=== PATIENT | male | born 1985 | race American Indian/Alaskan Native ===

== ENCOUNTER 2019-09-15 04:08 | Emergency (ER) | payer SELFPAY ==
[~2019-09-15] VITALS: Ht 180.3 cm; Wt 131.8 kg
--- NOTE | 2019-09-15 04:48 | REP ---
Clinical: Trauma. Technique: AP, lateral, bilateral oblique views right hand . Findings: The osseous structures and joint spaces are intact and normal. There is no evidence for acute fracture or dislocation. Surrounding soft tissues are unremarkable. No subcutaneous emphysema or radiodense foreign body. Impression: No obvious acute fracture or dislocation. Electronically Signed by Pierre Reyes MD 09/15/2019 04:40 A
[2019-09-15 05:05] LABS: HEMATOCRIT 42.1 % (42.0-52.0); MEAN CORPUSCULAR HEMOGLOBIN 27.8 pg (27.0-33.0); MEAN CORPUSCULAR HGB CONC 33.3 g/dl (32.0-36.5); MEAN CORPUSCULAR VOLUME 83.5 fl (80.0-96.0); PLATELET COUNT, AUTOMATED 235 10^3/uL (150-450); RED BLOOD COUNT 5.04 10^6/uL (4.30-6.10); WHITE BLOOD COUNT 8.4 10^3/uL (4.0-10.0)
[2019-09-15 05:25] LABS: AMPHETAMINES LEVEL URINE NEGATIVE (NEGATIVE); BARBITURATES URINE NEGATIVE (NEGATIVE); BENZODIAZEPINES URINE NEGATIVE (NEGATIVE); CANNABINOIDS URINE POSITIVE (NEGATIVE); COCAINE METABOLITE URINE NEGATIVE (NEGATIVE); METHADONE URINE NEGATIVE (NEGATIVE); OPIATES URINE NEGATIVE (NEGATIVE); PHENCYCLIDINE URINE NEGATIVE (NEGATIVE)
[2019-09-15 05:35] LABS: ACETAMINOPHEN LEVEL < 2.0 UG/ML (10.0-30.0); ALBUMIN 3.7 GM/DL (3.2-5.2); ALT/SGPT 112 U/L (12-78); BILIRUBIN,DIRECT < 0.1 MG/DL (0.0-0.2); BILIRUBIN,TOTAL 0.2 MG/DL (0.2-1.0); BLOOD UREA NITROGEN 27 MG/DL (7-18); CARBON DIOXIDE LEVEL 25 MEQ/L (21-32); CHLORIDE LEVEL 105 MEQ/L (98-107); CREATININE FOR GFR 1.41 MG/DL (0.70-1.30); ETHYL ALCOHOL (ETHANOL) 0.151 % (0.000-0.010); GLOMERULAR FILTRATION RATE > 60.0 (>60); GLUCOSE, FASTING 108 MG/DL (70-100); POTASSIUM SERUM 2.8 MEQ/L (3.5-5.1); SALICYLATE LEVEL < 1.7 MG/DL (5.0-30.0); SODIUM LEVEL 142 MEQ/L (136-145)
[2019-09-15] MEDS ORDERED: POTASSIUM CHLORIDE 10 MEQ SR TABLET PO ONE (06:00)
[2019-09-15] MEDS ORDERED: KCL 10MEQ/100ML SWI (KRUN) 10 MEQ in IV 1 EA IV ONE (06:00)
[2019-09-15] MEDS ORDERED: METAL LOCK LOOP XX ONE (06:48)
[2019-09-15 08:02] LABS: APPEARANCE, URINE CLEAR (CLEAR); BACTERIA, URINE AUTO NEGATIVE (NEGATIVE); BILIRUBIN, URINE AUTO NEGATIVE (NEGATIVE); BLOOD, URINE BLOOD 1+ (NEGATIVE); COLOR, URINE STRAW (YELLOW); GLUCOSE, URINE (UA) AUTO NEGATIVE (NEGATIVE); KETONE, URINE AUTO NEGATIVE (NEGATIVE); LEUKOCYTE ESTERASE, URINE AUTO NEGATIVE (NEGATIVE); MUCUS, URINE SMALL (NEGATIVE); NITRITE, URINE AUTO NEGATIVE (NEGATIVE); PROTEIN, URINE AUTO 2+ mg/dL (NEGATIVE); RBC, URINE AUTO 0 /HPF (0-3); SPECIFIC GRAVITY URINE AUTO 1.006 (1.002-1.035); SQUAMOUS EPITHELIAL CELL UR AU 0 /HPF (0-6); UROBILINOGEN, URINE AUTO 0.2 mg/dL (0.0-2.0); WBC, URINE AUTO 1 /HPF (0-3)
--- NOTE | 2019-09-15 08:13 | ECGEPIP ---
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
[2019-09-15 09:33] LABS: BLOOD UREA NITROGEN 23 MG/DL (7-18); CALCIUM LEVEL 9.2 MG/DL (8.5-10.1); CARBON DIOXIDE LEVEL 29 MEQ/L (21-32); CHLORIDE LEVEL 105 MEQ/L (98-107); CREATININE FOR GFR 1.17 MG/DL (0.70-1.30); GLOMERULAR FILTRATION RATE > 60.0 (>60); GLUCOSE, FASTING 103 MG/DL (70-100); POTASSIUM SERUM 3.3 MEQ/L (3.5-5.1); SODIUM LEVEL 143 MEQ/L (136-145)
[2019-09-15] MEDS ORDERED: K-TA10TA2 PO (12:48)
[2019-09-15 13:11] VITALS: BP 131/69
== END 2019-09-15 13:12 | disposition home or self-care (01) ==
LOC: M ED 04:08
DX: F43.20 Adjustment disorder, unspecified (principal); I10 Essential (primary) hypertension; E87.6 Hypokalemia; F31.9 Bipolar disorder, unspecified
CPT/HCPCS: 73130; 80048; 80076; 80307; 81001; 84443; 85027; 93005; 96365; 96366; 99285; G0480

== ENCOUNTER 2020-01-23 12:06 | Emergency (ER) | payer BC, MEDICAID, SELFPAY ==
[~2020-01-23] VITALS: Ht 175.3 cm; Wt 136.4 kg
[~2020-01-23 12:06] MED LIST: K-TA10TA2 PO
[2020-01-23] MEDS ORDERED: hydroCHLOROthiazide 25 MG TAB PO ONE (12:45)
[2020-01-23] MEDS ORDERED: lisinopriL 20 MG TAB PO ONE (12:45)
[2020-01-23 12:55] VITALS: BP 172/104
[2020-01-23 13:10] LABS: HEMATOCRIT 40.2 % (42.0-52.0); HEMOGLOBIN 13.2 g/dl (13.5-17.5); MEAN CORPUSCULAR HEMOGLOBIN 27.6 pg (27.0-33.0); MEAN CORPUSCULAR HGB CONC 32.8 g/dl (32.0-36.5); MEAN CORPUSCULAR VOLUME 83.9 fl (80.0-96.0); PLATELET COUNT, AUTOMATED 272 10^3/uL (150-450); RED BLOOD COUNT 4.79 10^6/uL (4.30-6.10); WHITE BLOOD COUNT 7.7 10^3/uL (4.0-10.0)
[2020-01-23 13:21] LABS: APPEARANCE, URINE CLEAR (CLEAR); BACTERIA, URINE AUTO NEGATIVE (NEGATIVE); BILIRUBIN, URINE AUTO NEGATIVE (NEGATIVE); BLOOD, URINE BLOOD NEGATIVE (NEGATIVE); COLOR, URINE YELLOW (YELLOW); GLUCOSE, URINE (UA) AUTO NEGATIVE (NEGATIVE); KETONE, URINE AUTO NEGATIVE (NEGATIVE); LEUKOCYTE ESTERASE, URINE AUTO NEGATIVE (NEGATIVE); NITRITE, URINE AUTO NEGATIVE (NEGATIVE); PROTEIN, URINE AUTO 2+ mg/dL (NEGATIVE); RBC, URINE AUTO 2 /HPF (0-3); SQUAMOUS EPITHELIAL CELL UR AU 0 /HPF (0-6); UROBILINOGEN, URINE AUTO 0.2 mg/dL (0.0-2.0); WBC, URINE AUTO 1 /HPF (0-3)
[2020-01-23 13:58] LABS: ALBUMIN 3.3 GM/DL (3.2-5.2); ALT/SGPT 73 U/L (12-78); BILIRUBIN,TOTAL 0.3 MG/DL (0.2-1.0); BLOOD UREA NITROGEN 20 MG/DL (7-18); CALCIUM LEVEL 8.9 MG/DL (8.5-10.1); CARBON DIOXIDE LEVEL 30 MEQ/L (21-32); CHLORIDE LEVEL 105 MEQ/L (98-107); CK-MB VALUE MASS 18.4 NG/ML (<3.6); CPK CREATINE PHOSPHOKINASE 2255 U/L (39-308); CREATININE FOR GFR 1.15 MG/DL (0.70-1.30); GLOMERULAR FILTRATION RATE > 60.0 (>60); GLUCOSE, FASTING 89 MG/DL (70-100); MB/CK RELATIVE INDEX 0.82 (< OR =4); POTASSIUM SERUM 3.3 MEQ/L (3.5-5.1); SODIUM LEVEL 142 MEQ/L (136-145); TOTAL PROTEIN 7.2 GM/DL (6.4-8.2); TROPONIN I 0.14 NG/ML (< 0.10)
[2020-01-23] MEDS ORDERED: NS 1,000 ML IV ONE (14:15)
[2020-01-23 16:16] LABS: CK-MB VALUE MASS 17.2 NG/ML (<3.6); MB/CK RELATIVE INDEX 0.73 (< OR =4); TROPONIN I 0.14 NG/ML (< 0.10)
[2020-01-23 16:17] VITALS: BP 168/114
[2020-01-23] MEDS ORDERED: HYDR12.55 PO (16:22)
[2020-01-23] MEDS ORDERED: LISI-538 PO (16:22)
--- NOTE | 2020-01-24 05:48 | ECGEPIP ---
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
== END 2020-01-23 16:47 | disposition home or self-care (01) ==
LOC: M ED 12:06
DX: I10 Essential (primary) hypertension (principal); M71.50 Other bursitis, not elsewhere classified, unspecified site; F17.200 Nicotine dependence, unspecified, uncomplicated

== ENCOUNTER → 2020-01-26 | Outpatient (CLI) | payer SELFPAY ==
[~2020-01-26] MED LIST changes: +HYDR12.55 PO; +LISI-538 PO
== END ==
LOC: M OUTALCOH 07:50
PROVIDERS: ATTEND Psychiatry & Neurology Addiction Medicine
DX: Z03.89 Encounter for observation for other suspected diseases and conditions ruled out (principal)

== ENCOUNTER 2020-02-16 14:42 | Outpatient (RCR) | payer SELFPAY | END 2020-02-20 | LOC: M OUTALCOH 14:42 | PROVIDERS: ATTEND Psychiatry & Neurology Addiction Medicine | DX: F12.10 Cannabis abuse, uncomplicated (principal); F10.10 Alcohol abuse, uncomplicated ==

== ENCOUNTER → 2020-03-08 | Outpatient (REF) | payer MEDICAID ==
[2020-03-08 11:17] LABS: APPEARANCE, URINE CLEAR (CLEAR); BACTERIA, URINE AUTO NEGATIVE (NEGATIVE); BILIRUBIN, URINE AUTO NEGATIVE (NEGATIVE); BLOOD, URINE BLOOD NEGATIVE (NEGATIVE); COLOR, URINE YELLOW (YELLOW); GLUCOSE, URINE (UA) AUTO NEGATIVE (NEGATIVE); KETONE, URINE AUTO NEGATIVE (NEGATIVE); LEUKOCYTE ESTERASE, URINE AUTO NEGATIVE (NEGATIVE); MUCUS, URINE SMALL (NEGATIVE); NITRITE, URINE AUTO NEGATIVE (NEGATIVE); PROTEIN, URINE AUTO 2+ mg/dL (NEGATIVE); RBC, URINE AUTO 0 /HPF (0-3); SPECIFIC GRAVITY URINE AUTO 1.015 (1.002-1.035); SQUAMOUS EPITHELIAL CELL UR AU 0 /HPF (0-6); UROBILINOGEN, URINE AUTO 0.2 mg/dL (0.0-2.0); WBC, URINE AUTO 0 /HPF (0-3)
[2020-03-08 11:53] LABS: HEMOGLOBIN A1c 5.3 %
[2020-03-08 12:19] LABS: ALBUMIN 3.8 GM/DL (3.2-5.2); ALT/SGPT 66 U/L (12-78); BILIRUBIN,TOTAL 0.4 MG/DL (0.2-1.0); BLOOD UREA NITROGEN 20 MG/DL (7-18); CALCIUM LEVEL 9.2 MG/DL (8.5-10.1); CARBON DIOXIDE LEVEL 30 MEQ/L (21-32); CHLORIDE LEVEL 104 MEQ/L (98-107); CHOLESTEROL LEVEL 156 MG/DL (<200); CHOLESTEROL RISK RATIO 2.836 (<5); CREATININE FOR GFR 1.16 MG/DL (0.70-1.30); GLOMERULAR FILTRATION RATE > 60.0 (>60); GLUCOSE, FASTING 80 MG/DL (70-100); HDL CHOLESTEROL 55 MG/DL (>40); LDL CHOLESTEROL 79 MG/DL (<100); NON-HDL-C 101 MG/DL; POTASSIUM SERUM 3.5 MEQ/L (3.5-5.1); SODIUM LEVEL 141 MEQ/L (136-145); TOTAL PROTEIN 7.6 GM/DL (6.4-8.2); TRIGLYCERIDES LEVEL 108 MG/DL (<150)
[2020-03-08 12:54] LABS: HIV 1&2 SCREEN CENTAUR NEGATIVE (NEGATIVE)
== END ==
LOC: M SFHCPLAZ 09:07
DX: Z13.1 Encounter for screening for diabetes mellitus (principal); Z68.41 Body mass index [BMI] 40.0-44.9, adult; Z00.00 Encounter for general adult medical examination without abnormal findings; I10 Essential (primary) hypertension

== ENCOUNTER 2020-03-15 14:22 | Outpatient (RCR) | payer SELFPAY | END 2020-03-21 | LOC: M OUTALCOH 14:22 | PROVIDERS: ATTEND Psychiatry & Neurology Addiction Medicine | DX: F12.10 Cannabis abuse, uncomplicated (principal); F10.10 Alcohol abuse, uncomplicated ==

== ENCOUNTER → 2020-03-16 | Outpatient (REF) | payer MEDICAID ==
[2020-03-16 10:55] LABS: BLOOD UREA NITROGEN 17 MG/DL (7-18); CALCIUM LEVEL 9.4 MG/DL (8.5-10.1); CARBON DIOXIDE LEVEL 33 MEQ/L (21-32); CHLORIDE LEVEL 105 MEQ/L (98-107); CREATININE FOR GFR 1.18 MG/DL (0.70-1.30); GLOMERULAR FILTRATION RATE > 60.0 (>60); GLUCOSE, FASTING 93 MG/DL (70-100); POTASSIUM SERUM 3.4 MEQ/L (3.5-5.1); SODIUM LEVEL 143 MEQ/L (136-145)
== END ==
LOC: M PLALAB 08:31
DX: I16.0 Hypertensive urgency (principal)

== ENCOUNTER 2020-04-19 14:51 | Outpatient (RCR) | payer OTHER, SELFPAY | END 2020-04-21 | LOC: M OUTALCOH 14:51 | PROVIDERS: ATTEND Psychiatry & Neurology Addiction Medicine | DX: F12.10 Cannabis abuse, uncomplicated (principal); F10.10 Alcohol abuse, uncomplicated ==

== ENCOUNTER → 2020-04-19 | Outpatient (REF) | payer OTHER ==
[2020-04-19 13:07] LABS: BLOOD UREA NITROGEN 20 MG/DL (7-18); CALCIUM LEVEL 9.3 MG/DL (8.5-10.1); CARBON DIOXIDE LEVEL 31 MEQ/L (21-32); CHLORIDE LEVEL 105 MEQ/L (98-107); CREATININE FOR GFR 1.29 MG/DL (0.70-1.30); GLOMERULAR FILTRATION RATE > 60.0 (>60); GLUCOSE, FASTING 93 MG/DL (70-100); POTASSIUM SERUM 3.7 MEQ/L (3.5-5.1); SODIUM LEVEL 142 MEQ/L (136-145)
== END ==
LOC: M SFHCPLAZ 11:25
PROVIDERS: ATTEND Family Medicine
DX: I10 Essential (primary) hypertension (principal)

== ENCOUNTER 2020-05-06 11:06 | Emergency (ER) | payer MEDICAID, OTHER ==
[~2020-05-06] VITALS: Ht 175.3 cm; Wt 138.0 kg
[~2020-05-06 11:06] MED LIST changes: -LISI-538 PO; +LISI20TA33 PO
--- OUTSIDE RECORDS SUMMARY | 2020-05-06 11:12 | CCD ---
Author Author [facility] Organization [facility] Address Unknown Phone Unavailable Support Name Relationship Address Phone TOPS Next Of Kin [address] [place] [address] SCARLET FREEMAN Next Of Kin [address] [place] [address] [place] Next Of Kin [address] [place] [address] Scarlet Freeman E[facility] [place] [address] Unavailable Re-disclosure Warning The records that you are about to access may contain information from federally-assisted alcohol or drug abuse programs. If such information is present, then the following federally mandated warning applies: This information has been disclosed to you from records protected by federal confidentiality rules (42 CFR part 2). The federal rules prohibit you from making any further disclosure of this information unless further disclosure is expressly permitted by the written consent of the person to whom it pertains or as otherwise permitted by 42 CFR part 2. A general authorization for the release of medical or other information is NOT sufficient for this purpose. The Federal rules restrict any use of the information to criminally investigate or prosecute any alcohol or drug abuse patient.The records that you are about to access may contain highly sensitive health information, the redisclosure of which is protected by Article 27-F of the [facility] Public Health law. If you continue you may have access to information: Regarding HIV / AIDS; Provided by facilities licensed or operated by the [facility] Office of Mental Health; or Provided by the [facility] Office for People With Developmental Disabilities. If such information is present, then the following [facility] mandated warning applies: This information has been disclosed to you from confidential records which are protected by state law. State law prohibits you from making any further disclosure of this information without the specific written consent of the person to whom it pertains, or as otherwise permitted by law. Any unauthorized further disclosure in violation of state law may result in a fine or assisted sentence or both. A general authorization for the release of medical or other information is NOT sufficient authorization for further disc losure. Encounters Encounter Providers Location Date Indications Data Source(s ) [place] [address] [facility] [address] 03/15/2020 12:00:00 AM EST eCW1 ([facility]) [place] [address] [facility] [address] 03/03/2020 12:00:00 AM EST eCW1 ([facility]) [facility] [address] [place] [address] 07/17/2019 12:00:00 AM EDT eCW1 ([facility]) Immunizations Vaccine Date Status Description Data Source(s) HPV9 03/03/2020 04:55:00 PM EST completed e CW1 ([facility]) HPV9 03/03/2020 04:55:00 PM EST completed e CW1 ([facility]) HPV9 03/03/2020 04:55:00 PM EST completed e CW1 ([facility]) Tdap 07/17/2019 06:03:00 PM EDT completed e CW1 ([facility]) Medications Medication Brand Name Start Date Product Form Dose Route Admi nistrative Instructions Pharmacy Instructions Status Indications Reaction Description Data Source(s) 25 mg 05/04/2020 12:00:00 AM EST tablet 30 TAKE ONE-HALF TABLET BY MOUTH TWICE A DAY TAKE ONE-HALF TABLET BY MOUTH TWICE A DAY SOLD: 05/05/2020 [facility] 10 mg 04/27/2020 12:00:00 AM EST tablet 30 TAKE ONE TABLET BY MOUTH EVERY DAY TAKE ONE TABLET BY MOUTH EVERY DAY SOLD: 04/28/2020 [facility] Amlodipine 10 MG Oral Tablet AmLODIPine Besylate 10 MG AmLODIPine Besylate 10 MG 04/26/2020 12:00:00 AM EST 1.0 {tablet} activ e AmLODIPine Besylate 10 MG eCW1 ([facility]) 5 mg 04/12/2020 12:00:00 AM EST tablet 30 TAKE ONE TABLET BY MOUTH EVERY DAY TAKE ONE TABLET BY MOUTH EVERY DAY SOLD: 04/13/2020 [facility] carvedilol 25 MG Oral Tablet CARVEDILOL 03/29/2020 12:00:00 AM EST tab let 60 TAKE ONE TABLET BY MOUTH TWICE A DAY WITH FOOD TAKE ONE TABLET BY MOUTH TWICE A DAY WITH FOOD SOLD: 04/28/2020 [facility] carvedilol 25 MG Oral Tablet CARVEDILOL 03/29/2020 12:00:00 AM EST tab let 60 TAKE ONE TABLET BY MOUTH TWICE A DAY WITH FOOD TAKE ONE TABLET BY MOUTH TWICE A DAY WITH FOOD SOLD: 03/30/2020 [facility] 25 mg 03/29/2020 12:00:00 AM EST tablet 15 TAKE 1/2 TABLET BY MOUTH TWO TIMES A DAY TAKE 1/2 TABLET BY MOUTH TWO TIMES A DAY SOLD: 03/30/2020 [facility] Spironolactone 25 MG Oral Tablet Spironolactone 25 MG 2019 12:00:00 AM EST active Spironolactone 25 MG eCW1 ([facility]) carvedilol 25 MG Oral Tablet Carvedilol 25 MG Carvedilol 25 MG 03/28/2020 12:00:00 AM EST 1.0 {tablet_with_food} active Carvedilol 25 MG eCW1 ([facility]) carvedilol 12.5 MG Oral Tablet [Coreg] Coreg 12.5 MG Coreg 1 2.5 MG 03/15/2020 12:00:00 AM EST 1.0 {tablet_with_food} active Coreg 12.5 MG eCW1 ([facility]) carvedilol 12.5 MG Oral Tablet [Coreg] Coreg 12.5 MG Coreg 1 2.5 MG 03/15/2020 12:00:00 AM EST 1.0 {tablet_with_food} active Coreg 12.5 MG eCW1 ([facility]) carvedilol 12.5 MG Oral Tablet CARVEDILOL 03/15/2020 12:00:00 AM EST tablet 60 TAKE ONE TABLET BY MOUTH TWICE A DAY WITH FOOD TAKE ON E TABLET BY MOUTH TWICE A DAY WITH FOOD SOLD: 03/15/2020 [facility] 20 mg 03/04/2020 12:00:00 AM EST tablet 30 TAKE ONE TABLET BY MOUTH EVERY DAY TAKE ONE TABLET BY MOUTH EVERY DAY SOLD: 03/04/2020 [facility] 12.5 mg 03/04/2020 12:00:00 AM EST capsule 30 TAKE ONE CAPSULE BY MOUTH EVERY MORNING ONCE A DAY TAKE ONE CAPSULE BY MOUTH EVERY MORNING ONCE A DAY SOLD: 03/04/2020 [facility] 12.5 mg 03/04/2020 12:00:00 AM EST capsule 30 TAKE ONE CAPSULE BY MOUTH EVERY MORNING ONCE A DAY TAKE ONE CAPSULE BY MOUTH EVERY MORNING ONCE A DAY SOLD: 03/30/2020 [facility] 20 mg 03/04/2020 12:00:00 AM EST tablet 30 TAKE ONE TABLET BY MOUTH EVERY DAY TAKE ONE TABLET BY MOUTH EVERY DAY SOLD: 03/30/2020 [facility] 20 mg 03/04/2020 12:00:00 AM EST tablet 30 TAKE ONE TABLET BY MOUTH EVERY DAY TAKE ONE TABLET BY MOUTH EVERY DAY SOLD: 04/28/2020 [facility] 12.5 mg 03/04/2020 12:00:00 AM EST capsule 30 TAKE ONE CAPSULE BY MOUTH EVERY MORNING ONCE A DAY TAKE ONE CAPSULE BY MOUTH EVERY MORNING ONCE A DAY SOLD: 04/28/2020 [facility] Hydrochlorothiazide 12.5 MG Oral Tablet HYDROCHLOROTHIAZIDE 01/23/2020 12:00:00 AM EDT tablet 30 TAKE ONE TABLET BY MOUTH JAH DAY TAKE ONE TABLET BY MOUTH EVERY DAY SOLD: 01/26/2020 [facility] 20 mg 01/23/2020 12:00:00 AM EDT tablet 30 TAKE ONE TABLET BY MOUTH EVERY DAY TAKE ONE TABLET BY MOUTH EVERY DAY SOLD: 01/26/2020 [facility] 875-125 mg 07/17/2019 12:00:00 AM EDT tablet 20 TAKE ONE TABLET BY MOUTH EVERY 12 HOURS FOR 10 DAYS TAKE ONE TABLET BY MOUTH EVERY 12 HOURS FOR 10 DAYS SOLD: 07/17/2019 [facility] Augmentin 875-125 MG UNK 07/17/2019 12:00:00 AM EDT active 1 tablet eCW1 ([facility]) Insurance Providers Payer name Policy type / Coverage type Policy ID Covered democrat ID Covered democrat's relationship to foley Policy Foley Plan Information [facility] [id number] SP [id number] [facility] [id number] SP [id number] SELF PAY ONLY [id number] SP [id number] EMEDNY [id number] SP [id number] [employer] [place] PPO [id number] SP [id number] Problems, Conditions, and Diagnoses Code Display Name Description Problem Type Effective Dates Data Source(s) G47.33 [id number] Obstructive sleep apnea Problem 05/01/2020 1 2:00:00 AM EST eCW1 ([facility]) G47.34 151458793 Nocturnal hypoxia Problem 04/12/2020 12:00:0 0 AM EST eCW1 ([facility]) I10 67456400 Hypertension, unspecified type Problem 03/16 12:00:00 AM EST eCW1 ([facility]) I16.0 915898555 Hypertensive urgency Problem 03/15/2020 12:0 0:00 AM EST eCW1 ([facility]) I10 79605016 Elevated blood press ure reading in office with diagnosis of hypertension Problem 03/03/2020 12:00:00 AM EST eCW1 ([facility]) Z68.41 424121452 BMI 40.0-44.9, adult Problem 03/03/2020 12:0 0:00 AM EST eCW1 ([facility]) Surgeries/Procedures Procedure Description Date Indications Data Source(s) ECG ROUTINE ECG W/LEAST 12 LDS W/I&R 03/15/2020 12:00: 00 AM EST eCW1 ([facility]) Medication: Coreg Tab 3.125mg Orally (Carvedilol) 03/15/2020 12:00:00 AM EST eCW1 ([facility]) Immunization: Gardasil 9 0.5mL IM (HPV9) 03/03/2020 12 :00:00 AM EST eCW1 ([facility]) TDAP 0.5mL (Boostrix) 07/17/2019 12:00:00 AM EDT eCW1 ([facility]) IMMUNIZATION ADMIN 07/17/2019 12:00:00 AM EDT eCW1 ([facility]) Social History Code Duration Value Status Description Data Source(s ) Smoking 05/01/2020 12:00:00 AM EST Current Smoker completed Curre nt Smoker eCW1 ([facility]) Smoking 03/16/2020 12:00:00 AM EST Current Smoker completed Curre nt Smoker eCW1 ([facility]) Smoking 03/16/2020 12:00:00 AM EST Current Smoker completed Curre nt Smoker eCW1 ([facility]) Vital Signs ID Date Data Source UNK Name Value Range Interpretation Code Description Data Source(s) Diastolic blood pressure 130 mm[Hg] 130 mm[Hg] eCW1 ([facility]) Systolic blood pressure 224 mm[Hg] 224 mm[Hg] e CW1 ([facility]) Body temperature 97.8 [degF] 97.8 [degF] eCW1 ( [facility]) Respiratory rate 18 /min 18 /min eCW1 ([facility]) Heart rate 89 /min 89 /min eCW1 ([facility]) Body mass index (BMI) [Ratio] 44.76 kg/m2 44.76 kg/m2 eCW1 ([facility]) Body height 69 [in_i] 69 [in_i] eCW1 ([facility]) Body weight 303.12 [lb_av] 303.12 [lb_av] eCW1 ([facility]) Diastolic blood pressure 130 mm[Hg] 130 mm[Hg] eCW1 ([facility]) Systolic blood pressure 224 mm[Hg] 224 mm[Hg] e CW1 ([facility]) Body temperature 97.8 [degF] 97.8 [degF] eCW1 ( [facility]) Respiratory rate 18 /min 18 /min eCW1 ([facility]) Heart rate 89 /min 89 /min eCW1 ([facility]) Body mass index (BMI) [Ratio] 44.76 kg/m2 44.76 kg/m2 W1 ([facility]) Body height 69 [in_i] 69 [in_i] eCW1 ([facility]) Body weight 303.12 [lb_av] 303.12 [lb_av] eCW1 ([facility]) Diastolic blood pressure mm[Hg] eCW1 ([facility]) Systolic blood pressure 150 mm[Hg] 150 mm[Hg] e CW1 ([facility]) Body temperature 98.2 [degF] 98.2 [degF] eCW1 ( [facility]) Respiratory rate 18 /min 18 /min eCW1 ([facility]) Heart rate 92 /min 92 /min eCW1 ([facility]) Body mass index (BMI) [Ratio] 44.62 kg/m2 44.62 kg/m2 eCW1 ([facility]) Body height 69 [in_i] 69 [in_i] eCW1 ([facility]) Body weight 302.2 [lb_av] 302.2 [lb_av] eCW1 ([facility] of [facility]) Diastolic blood pressure 99 mm[Hg] 99 mm[Hg] eCW1 ([facility]) Systolic blood pressure 185 mm[Hg] 185 mm[Hg] e CW1 ([facility]) Body temperature [degF] eCW1 ([facility]) Respiratory rate 16 /min 16 /min eCW1 ([facility]) Heart rate 92 /min 92 /min eCW1 ([facility]) Body mass index (BMI) [Ratio] 44.00 kg/m2 44.00 kg/m2 eCW1 ([facility]) Body height 69 [in_us] 69 [in_us] eCW1 ([facility]) Body weight Measured 298 [lb_av] 298 [lb_av] eC W1 ([facility]) Patient Treatment Plan of Care Planned Activity Planned Date Details Description Data Source (s) Amlodipine 10 MG Oral Tablet 04/26/2020 12:00:00 AM EST eCW1 ([facility]) Spironolactone 25 MG Oral Tablet 03/28/2020 12:00:00 AM EST eCW1 ([facility]) Augmentin 875-125 MG 07/17/2019 12:00:00 AM EDT eCW1 ([facility])
--- OUTSIDE RECORDS SUMMARY | 2020-05-06 11:12 | CCD ---
Author Author [facility] Organization [facility] Address Unknown Phone Unavailable Care Team Providers Care Federal Agent Name Role Phone Marianna Romero Unavailable PROBLEMS Type Condition ICD9-CM Code [id number] Code Onset Dates Condition S tatus SNOMED Code Notes Problem Hypertensive urgency I16.0 Active 342639780 Problem Hypertension, unspecified type I10 Active 3 3627950 Problem BMI 40.0-44.9, adult Z68.41 Active 501520186 Problem Elevated blood pressure read ing in office with diagnosis of hypertension I10 Active 88449317 ALLERGIES No Known Allergies ENCOUNTERS from 1985 to 2020-03-23 Encounter Location Date Provider Diagnosis [address] [address] 24 Feb, 2020 Marianna Romero Hypertensive urgency I16.0 IMMUNIZATIONS Vaccine Route Administration Date Status HPV9 0.5mL (Gardasil 9) IM Intramuscular Mar 03, 2020 Adminis tered SOCIAL HISTORY Tobacco Use: Social History Observation Description Date Details (start date - stop date) Current Smoker Sex Assigned At : Social History Observation Description Sex Assigned At Unknown Education: Question Answer Notes Level of Education: High School Language: Question Answer Notes Languages spoken: Serbian Buddhist: Question Answer Notes Buddhist 33 None Sexual Hx: Question Answer Notes Had sex in the last 12 months (vaginal, oral, or anal)? Yes Have you ever had an STD? No with Women only Use protection? Yes How often? 90% Alcohol Screening: Question Answer Notes Did you have a drink containing alcohol in the past year? Ye s Points 3 Interpretation Negative How often did you have six or more drinks on one occas ion in the past year? Never (0 points) How many drinks did you have on a typica l day when you were drinking in the past year? 1 or 2 (0 points) How often did you have a drink containing alcohol in t he past year? Two to three times per week (3 points) Tobacco Use: Question Answer Notes Are you a: current smoker How many cigarettes a day do you smoke? 5 or less Are you interested in quitting? Not ready to quit REASON FOR REFERRAL No Information VITAL SIGNS Weight 303.12 lbs Feb, Height 69 in Feb, BMI 44.76 kg/m2 Feb, Heart Rate 89 /min Feb, Respiratory Rate 18 /min Feb, Temperature 97.8 degrees Fahrenheit Feb, Oximetry 98 Feb, Blood pressure systolic 224 mm Hg Feb, Blood pressure diastolic 130 mm Hg Feb, MEDICATIONS Medication SIG (Take, Route, Frequency, Duration) Notes Start Da te End Date Status Lisinopril 20 MG 1 tablet Orally Once a day for 30 day(s) Active Coreg 12.5 MG 1 tablet with food Orally Twice a day for 30 day (s) Feb, Active Hydrochlorothiazide 12.5 MG 1 capsule in the morning O rally Once a day for 30 day(s) Active PROCEDURES Procedure Date Ordered Result Body Site Medication: Coreg Tab 3.125mg Orally (Carvedilol) 2020-03-15 N/A ELECTROCARDIOGRAM, COMPLETE EKG 2020-03-15 N/A RESULTS No Results REASON FOR VISIT Elevated BP MEDICAL (GENERAL) HISTORY Type Description Date Medical History hypertension Surgical History No Surgical history information Goals Section No Information Health Concerns No Information MEDICAL EQUIPMENT No Information MENTAL STATUS No Information FUNCTIONAL STATUS No Information ASSESSMENTS Encounter Date Diagnosis Assessment Notes Treatment Notes Treatm ent Clinical Notes Feb, Hypertensive urgency (ICD-10 - I16.0) Discussed patient with Dr. Carvalho as well Pt given Coreg 12.5 mg here in the clinic; pt waited for about an hour and his BP came down to 170/102 on the right arm and 170/110 on the left. He felt better stating that he felt less tense. Will obtain a BMP and drug screen tomorrow before his appt. Continue Coreg 12.5 mg BID. Follow-up tomorrow for a recheck. With any chest pain, call 911 PLAN OF TREATMENT Treatment Notes Assessment Notes Clinical Notes Hypertensive urgency Discussed patient with Dr. Mee kessler as wellPt given Coreg 12.5 mg here in the clinic; pt waited for about an hour and his BP came down to 170/102 on the right arm and 170/110 on the left. He felt better stating that he felt less tense.Will obtain a BMP and drug screen tomorrow before his appt.Continue Coreg 12.5 mg BID.Follow-up tomorrow for a recheck.With any chest pain, call 911 Treatment Notes Test Name Order Date DRUG EVAL SCREEN BLOOD 7 DRUGS 2020-03-23 Next Appt Details Provider Name:Mckinley Shelton, 7 02:30:00 PM, [address] [place], [address], Insurance Providers Payer Name Payer Address Payer Phone Insured Name Patient Relati onship to Insured Coverage Start Date Coverage End Date MEDICAID [employer] [address] [facility] [id number] CATHLEEN FREEMAN
--- OUTSIDE RECORDS SUMMARY | 2020-05-06 11:12 | CCD ---
Author Author [facility] Organization [facility] Address Unknown Phone Unavailable Care Team Providers Care Sole Layer Hand Name Role Phone Marianna Romero Unavailable PROBLEMS Type Condition ICD9-CM Code [id number] Code Onset Dates Condition S tatus SNOMED Code Notes Problem Hypertensive urgency I16.0 Active 286930774 Problem Hypertension, unspecified type I10 Active 3 0466845 Problem BMI 40.0-44.9, adult Z68.41 Active 363061610 Problem Elevated blood pressure read ing in office with diagnosis of hypertension I10 Active 12224588 ALLERGIES No Known Allergies ENCOUNTERS from 1985 to 2020-03-22 Encounter Location Date Provider Diagnosis [address] [address] 24 Feb, 2020 Marianna Romero Hypertensive urgency [...] School Language: Question Answer Notes Languages spoken: Andorran Voodoo: Question Answer Notes Voodoo 33 None Sexual Hx: Question Answer Notes [...] Coreg Tab 3.125mg Orally (Carvedilol) 2020-03-15 N/A RESULTS No Results REASON FOR [...] 911 Treatment Notes Test Name Order Date Basic Metabolic Profile (BMP) 2020-03-22 DRUG EVAL SCREEN BLOOD 7 DRUGS 2020-03-22 ELECTROCARDIOGRAM, COMPLETE EKG 2020-03-22 Next Appt Details Provider Name:Mckinley Shelton, 7 02:30:00 PM, [address] [facility], [place], [address], Insurance Providers Payer Name Payer Address Payer Phone Insured Name Patient Relati onship to Insured Coverage Start Date Coverage End Date MEDICAID [employer] [address] [facility] [id number] CATHLEEN FREEMAN
[2020-05-06] MEDS ORDERED: AMLO1TAB25 (11:26)
[2020-05-06] MEDS ORDERED: CARV25TA (11:26)
[2020-05-06] MEDS ORDERED: SPIR-10 (11:26)
--- OUTSIDE RECORDS SUMMARY | 2020-05-06 12:20 | CCD ---
Author Author [facility] Organization [facility] Address Unknown Phone Unavailable Support Name Relationship Address Phone TOPS Next Of Kin [address] [place] [address] SCARLET FREEMAN Next Of Kin [address] [place] [address] [place] Next Of Kin [address] [place] [address] Scarlet Freeman [facility] [place] [address] Unavailable Re-disclosure Warning The records that you [...] is protected by Article 27-F of the [facility] Public Health law. If you continue you may have access to information: Regarding HIV / AIDS; Provided by facilities licensed or operated by the [facility] Office of Mental Health; or Provided by the [facility] Office for People With Developmental Disabilities. If such information is present, then the following [facility] mandated warning applies: This information has [...] law may result in a fine or long-term sentence or both. A general authorization for the release of medical or other information is NOT sufficient authorization for further disc losure. Encounters Encounter Providers Location Date Indications Data Source(s ) [place] [address] [facility] [address] 03/15/2020 12:00:00 AM EST eCW1 ([facility]) [place] [address] [facility] [address] 03/03/2020 12:00:00 AM EST eCW1 ([facility]) [facility] [address] [place] [address] 07/17/2019 12:00:00 AM EDT eCW1 ([facility]) Immunizations Vaccine Date Status Description Data Source(s) HPV9 03/03/2020 04:55:00 PM EST completed e CW1 ([facility]) HPV9 03/03/2020 04:55:00 PM EST completed e CW1 ([facility]) HPV9 03/03/2020 04:55:00 PM EST completed e CW1 ([facility]) Tdap 07/17/2019 06:03:00 PM EDT completed e CW1 ([facility]) Medications Medication Brand Name Start [...] activ e AmLODIPine Besylate 10 MG eCW1 ([facility]) 5 mg 04/12/2020 12:00:00 AM [...] AM EST active Spironolactone 25 MG eCW1 ([facility]) carvedilol 25 MG Oral Tablet Carvedilol 25 MG Carvedilol 25 MG 03/28/2020 12:00:00 AM EST 1.0 {tablet_with_food} active Carvedilol 25 MG eCW1 ([facility]) carvedilol 12.5 MG Oral Tablet [Coreg] Coreg 12.5 MG Coreg 1 2.5 MG 03/15/2020 12:00:00 AM EST 1.0 {tablet_with_food} active Coreg 12.5 MG eCW1 ([facility]) carvedilol 12.5 MG Oral Tablet [Coreg] Coreg 12.5 MG Coreg 1 2.5 MG 03/15/2020 12:00:00 AM EST 1.0 {tablet_with_food} active Coreg 12.5 MG eCW1 ([facility]) carvedilol 12.5 MG Oral Tablet [...] 12:00:00 AM EDT active 1 tablet eCW1 ([facility]) Insurance Providers Payer name Policy type / Coverage type Policy ID Covered republican ID Covered republican's relationship to foley Policy Foley Plan Information [facility] [id number] SP [id number] [facility] [id number] SP [id number] [facility] [id number] SELF PAY ONLY [id number] SP [id number] [place] [id number] SP [id number] [employer] [place] PPO 302/307 [id number] SP [id number] Problems, Conditions, and Diagnoses Code Display Name Description Problem Type Effective Dates Data Source(s) G47.33 [id number] Obstructive sleep apnea Problem 05/01/2020 1 2:00:00 AM EST eCW1 ([facility]) G47.34 [id number] Nocturnal hypoxia Problem 04/12/2020 12:00:0 0 AM EST eCW1 ([facility]) I10 32603014 Hypertension, unspecified type Problem 03/16 12:00:00 AM EST eCW1 ([facility]) I16.0 [id number] Hypertensive urgency Problem 03/15/2020 12:0 0:00 AM EST eCW1 ([facility]) I10 [id number] Elevated blood press ure reading in office with diagnosis of hypertension Problem 03/03/2020 12:00:00 AM EST eCW1 ([facility]) Z68.41 [id number] BMI 40.0-44.9, adult Problem 03/03/2020 12:0 0:00 AM EST eCW1 ([facility]) Surgeries/Procedures Procedure Description Date Indications Data Source(s) ECG ROUTINE ECG W/LEAST 12 LDS W/I&R 03/15/2020 12:00: 00 AM EST eCW1 ([facility]) Medication: Coreg Tab 3.125mg Orally (Carvedilol) 03/15/2020 12:00:00 AM EST eCW1 ([facility]) Immunization: Gardasil 9 0.5mL IM (HPV9) 03/03/2020 12 :00:00 AM EST eCW1 ([facility]) TDAP 0.5mL (Boostrix) 07/17/2019 12:00:00 AM EDT eCW1 ([facility]) IMMUNIZATION ADMIN 07/17/2019 12:00:00 AM EDT eCW1 ([facility]) Social History Code Duration Value Status Description Data Source(s ) Smoking 05/01/2020 12:00:00 AM EST Current Smoker completed Curre nt Smoker eCW1 ([facility]) Smoking 03/16/2020 12:00:00 AM EST Current Smoker completed Curre nt Smoker eCW1 ([facility]) Smoking 03/16/2020 12:00:00 AM EST Current Smoker completed Curre nt Smoker eCW1 ([facility]) Vital Signs ID Date Data Source UNK Name Value Range Interpretation Code Description Data Source(s) Diastolic blood pressure 130 mm[Hg] 130 mm[Hg] eCW1 ([facility]) Systolic blood pressure 224 mm[Hg] 224 mm[Hg] e CW1 ([facility]) Body temperature 97.8 [degF] 97.8 [degF] eCW1 ( [facility]) Respiratory rate 18 /min 18 /min eCW1 ([facility]) Heart rate 89 /min 89 /min eCW1 ([facility]) Body mass index (BMI) [Ratio] 44.76 kg/m2 44.76 kg/m2 W1 ([facility]) Body height 69 [in_i] 69 [in_i] eCW1 ([facility]) Body weight 303.12 [lb_av] 303.12 [lb_av] eCW1 ([facility]) Diastolic blood pressure 130 mm[Hg] 130 mm[Hg] eCW1 ([facility]) Systolic blood pressure 224 mm[Hg] 224 mm[Hg] e CW1 ([facility]) Body temperature 97.8 [degF] 97.8 [degF] eCW1 ( [facility]) Respiratory rate 18 /min 18 /min eCW1 ([facility]) Heart rate 89 /min 89 /min eCW1 ([facility]) Body mass index (BMI) [Ratio] 44.76 kg/m2 44.76 kg/m2 W1 ([facility]) Body height 69 [in_i] 69 [in_i] eCW1 ([facility]) Body weight 303.12 [lb_av] 303.12 [lb_av] eCW1 ([facility]) Diastolic blood pressure mm[Hg] eCW1 ([facility]) Systolic blood pressure 150 mm[Hg] 150 mm[Hg] e CW1 ([facility]) Body temperature 98.2 [degF] 98.2 [degF] eCW1 ( [facility]) Respiratory rate 18 /min 18 /min eCW1 ([facility]) Heart rate 92 /min 92 /min eCW1 ([facility]) Body mass index (BMI) [Ratio] 44.62 kg/m2 44.62 kg/m2 eCW1 ([facility]) Body height 69 [in_i] 69 [in_i] eCW1 ([facility]) Body weight 302.2 [lb_av] 302.2 [lb_av] eCW1 ([facility]) Diastolic blood pressure 99 mm[Hg] 99 mm[Hg] eCW1 ([facility]) Systolic blood pressure 185 mm[Hg] 185 mm[Hg] e CW1 ([facility]) Body temperature [degF] eCW1 ([facility]) Respiratory rate 16 /min 16 /min eCW1 ([facility]) Heart rate 92 /min 92 /min eCW1 ([facility]) Body mass index (BMI) [Ratio] 44.00 kg/m2 44.00 kg/m2 eCW1 ([facility]) Body height 69 [in_us] 69 [in_us] eCW1 ([facility]) Body weight Measured 298 [lb_av] 298 [lb_av] eC W1 ([facility]) Patient Treatment Plan of Care Planned Activity Planned Date Details Description Data Source (s) Amlodipine 10 MG Oral Tablet 04/26/2020 12:00:00 AM EST eCW1 ([facility]) Spironolactone 25 MG Oral Tablet 03/28/2020 12:00:00 AM EST eCW1 ([facility]) Augmentin 875-125 MG 07/17/2019 12:00:00 AM EDT eCW1 ([facility])
--- NOTE | 2020-05-06 12:38 | REP ---
INDICATION: left wrist pain COMPARISON: None. TECHNIQUE: Four views left wrist. FINDINGS: There is no evidence of acute fracture, dislocation, or intrinsic bone disease. IMPRESSION: No fracture or dislocation. <Electronically signed by Deven Mcelroy > 05/06/20 [id number]
[2020-05-06 12:57] VITALS: BP 149/73
== END 2020-05-06 12:59 | disposition home or self-care (01) ==
LOC: M ED 11:06
DX: G56.02 Carpal tunnel syndrome, left upper limb (principal); I10 Essential (primary) hypertension; Z79.899 Other long term (current) drug therapy; Z91.018 Allergy to other foods

== ENCOUNTER → 2020-05-09 | Outpatient (REF) | payer OTHER ==
[~2020-05-09] MED LIST changes: +AMLO1TAB25; +CARV25TA; +SPIR-10
== END ==
LOC: M SFHCPLAZ 08:58
PROVIDERS: ATTEND Family Medicine
DX: R80.9 Proteinuria, unspecified (principal)

== ENCOUNTER 2020-05-10 13:10 | Outpatient (RCR) | payer MEDICAID ==
[~2020-05-10 13:10] MED LIST changes: +LISI-538 PO; -LISI20TA33 PO
== END 2020-05-22 ==
LOC: M OUTALCOH 13:10
PROVIDERS: ATTEND Psychiatry & Neurology Addiction Medicine
DX: F12.10 Cannabis abuse, uncomplicated (principal); F10.10 Alcohol abuse, uncomplicated

== ENCOUNTER → 2020-05-10 | Outpatient (REF) | payer OTHER ==
[2020-05-10 11:51] LABS: TOTAL PROTEIN,RANDOM URINE 138.8 MG/DL (0.0-12.0)
== END ==
LOC: M SFHCPLAZ 10:13
DX: R80.9 Proteinuria, unspecified (principal)

== ENCOUNTER → 2020-06-07 | Outpatient (CLI) | payer OTHER ==
[~2020-06-07] MED LIST changes: -LISI-538 PO; +LISI20TA33 PO
--- NOTE | 2020-06-09 14:30 | SLEEPHOME ---
DATE: 06/07/2020 ORDERED BY: Madhavi Michel Diagnostic home sleep testing was performed due to concern for the obstructive sleep apnea syndrome in this patient with a history of hypertension and obesity who is experiencing excessive somnolence and nonrestorative sleep. For testing, a nocturnal T3 respiratory monitoring device was used. Continuous record was made of pulse, oxygen saturation, air flow, chest and abdominal strain, and body position. There was 9 hours and 59 minutes of data reviewed. There was 6 hours and 43 minutes marked as time in bed. During the interval marked time in bed there were 271 respiratory events identified of 10 seconds in duration or greater for a respiratory event index of 39.4. Pulse rate and saturation values were lost due to displacement of the probe early in the study. Testing was performed in both the supine and nonspine positions. IMPRESSION: Abnormal home sleep testing with repetitive respiratory events and respiratory event index of 39.4 is consistent with the obstructive sleep apnea syndrome. RECOMMENDATION: The patient should be encouraged to undergo formal sleep evaluation and given comorbidites in-laboratory pressure titration.
== END ==
LOC: M SLEEP HO 11:20
PROVIDERS: ATTEND Nurse Practitioner Family
DX: R06.83 Snoring (principal)

== ENCOUNTER 2021-03-29 09:56 | Inpatient (IN) | payer OTHER ==
[~2021-03-29] VITALS: Ht 175.3 cm; Wt 123.7 kg
[~2021-03-29 09:56] MED LIST changes: +VANCOMYCIN HCL 2,000 MG in D5W 500 ML IV SCH
[2021-03-29] MEDS ORDERED: ACETAMINOPHEN 325 MG TAB PO ONE (11:35)
[2021-03-29 12:11] LABS: BASO % 0.3 % (0.0-1.0); EOS # 0.3 10^3/uL (0.0-0.5); EOS % 2.2 % (0.0-3.0); LYMPH # 3.1 10^3/uL (1.5-5.0); LYMPH % 20.1 % (24.0-44.0); MEAN CORPUSCULAR HEMOGLOBIN 27.2 pg (27.0-33.0); MEAN CORPUSCULAR HGB CONC 32.6 g/dl (32.0-36.5); MEAN CORPUSCULAR VOLUME 83.5 fl (80.0-96.0); MONO # 1.4 10^3/uL (0.0-0.8); MONO % 8.9 % (2.0-8.0); NEUTROPHILS # 10.4 10^3/uL (1.5-8.5); NEUTROPHILS % 68.1 % (36.0-66.0); PLATELET COUNT, AUTOMATED 257 10^3/uL (150-450); RED BLOOD COUNT 5.15 10^6/uL (4.30-6.10); WHITE BLOOD COUNT 15.3 10^3/uL (4.0-10.0)
[2021-03-29 12:30] LABS: BLOOD UREA NITROGEN 19 MG/DL (7-18); CALCIUM LEVEL 9.1 MG/DL (8.5-10.1); CARBON DIOXIDE LEVEL 29 MEQ/L (21-32); CHLORIDE LEVEL 105 MEQ/L (98-107); CREATININE FOR GFR 1.31 MG/DL (0.70-1.30); GLOMERULAR FILTRATION RATE > 60.0 (>60); GLUCOSE, FASTING 98 MG/DL (70-100); POTASSIUM SERUM 3.1 MEQ/L (3.5-5.1); SODIUM LEVEL 142 MEQ/L (136-145); URIC ACID 7.8 MG/DL (3.5-7.2)
[2021-03-29] MEDS ORDERED: oxyCODONE 5MG TAB PO ONE (14:05)
[2021-03-29] MEDS ORDERED: LIDOCAINE 1% MDV 20ML VIAL As Ordered ONE (16:45)
[2021-03-29 17:39] LABS: CRYSTALS, BODY FLUID NONE SEEN (NONE SEEN); SOURCE, BODY FLUID RT ANKLE; SOURCE, BODY FLUID CRYSTALS RT ANKLE; SYNOVIAL FLUID COLOR RED (COLORLESS)
[2021-03-29 18:02] LABS: SOURCE, BODY FLUID URIC ACID RT ANKLE; URIC ACID, BODY FLUID 7.8 MG/DL (NOT ESTABLISHED)
[2021-03-29] MEDS ORDERED: NS 1,000 ML IV SCH (19:05)
[2021-03-29] MEDS ORDERED: HOME MED LIST COMPLETE! XX SCH (19:15)
[2021-03-29] MEDS ORDERED: LIDOCAINE 2% 100MG/5ML SDV (FOR ANES.) As Ordered ONE (20:23)
[2021-03-29] MEDS ORDERED: KETOROLAC 60MG 2ML VIAL As Ordered ONE (20:23)
[2021-03-29] MEDS ORDERED: MIDAZOLAM INJ 2MG/2ML VIAL (J2250 PER 1MG) As Ordered ONE (20:23)
[2021-03-29] MEDS ORDERED: propofoL 200 MG/20 ML VIAL As Ordered ONE (20:23)
[2021-03-29] MEDS ORDERED: ONDANSETRON 4MG/2ML VIAL As Ordered ONE (20:23)
[2021-03-29] MEDS ORDERED: fentaNYL 250 MCG/5 ML INJECTION As Ordered ONE (20:23)
[2021-03-29] MEDS ORDERED: dexameTHASONE 4 MG/ML 1ML VIAL (J1100 PER 1MG) As Ordered ONE (20:23)
[2021-03-29] MEDS ORDERED: ACETAMINOPHEN 1000MG 100ML IV BTL (OFIRMEV) (J0131 PER 10MG) As Ordered ONE (20:51)
[2021-03-29] MEDS ORDERED: HYDROmorphone HCL 2MG/ML 1ML VIAL As Ordered ONE (21:05)
[2021-03-29] MEDS ORDERED: TRANEXAMIC ACID 100 MG/ML 10ML VIAL As Ordered ONE ×2 (21:47→21:57)
[2021-03-29] MEDS ORDERED: LABETALOL 100MG/20ML VIAL As Ordered ONE (21:53)
[2021-03-29 22:07] LABS: CRYSTALS, BODY FLUID CA PYROPHOSPHATE (NONE SEEN); SOURCE, BODY FLUID CRYSTALS RT ANKLE
[2021-03-29] MEDS ORDERED: LIDOCAINE W/EPINEPHRINE 1% 20ML VIAL As Ordered ONE (22:14)
[2021-03-29] MEDS ORDERED: ONDANSETRON 4MG/2ML VIAL IV PRN ×2 (22:45→23:15)
[2021-03-29] MEDS ORDERED: oxyCODONE 5MG TAB PO PRN (22:45)
[2021-03-29] MEDS ORDERED: LR 1,000 ML IV SCH ×2 (22:45→23:00)
[2021-03-29] MEDS ORDERED: fentaNYL 100 MCG/2 ML INJECTION IV PRN (22:45)
[2021-03-29] MEDS ORDERED: hydrALAZINE 20MG/ML 1ML VIAL (J0360 PER 20MG) IV PRN (22:45)
[2021-03-29] MEDS ORDERED: HYDROMORPHONE HCL 0.5 MG/ 0.5 ML SYRINGE (J1170 PER 1) IV PRN (22:45)
[2021-03-29] MEDS: cefTRIAXone SOD 1 GM in D5W MINI-BAG PLUS 50 ML IV SCH (22:49)
[2021-03-29] MEDS: LABETALOL 100MG/20ML VIAL IV PRN ×4 (22:50→23:13)
[2021-03-29] MEDS: KCL 10MEQ/100ML SWI (KRUN) 10 MEQ in IV 1 EA IV SCH (23:38)
[2021-03-30] VITALS (13 sets, daily range): BP systolic 150–210; BP diastolic 90–113; O2SAT 95
[2021-03-30] MEDS ORDERED: LABETALOL 100MG/20ML VIAL ONE (00:07)
[2021-03-30] MEDS ORDERED: amLODIPine 5 MG TAB PO ONE ×2 (00:25→16:50)
[2021-03-30 00:49] LABS: APPEARANCE, URINE HAZY (CLEAR); BACTERIA, URINE AUTO NEGATIVE (NEGATIVE); BILIRUBIN, URINE AUTO NEGATIVE (NEGATIVE); BLOOD, URINE BLOOD NEGATIVE (NEGATIVE); COLOR, URINE YELLOW (YELLOW); GLUCOSE, URINE (UA) AUTO NEGATIVE (NEGATIVE); KETONE, URINE AUTO NEGATIVE (NEGATIVE); LEUKOCYTE ESTERASE, URINE AUTO NEGATIVE (NEGATIVE); MUCUS, URINE SMALL (NEGATIVE); NITRITE, URINE AUTO NEGATIVE (NEGATIVE); PROTEIN, URINE AUTO 2+ mg/dL (NEGATIVE); RBC, URINE AUTO 0 /HPF (0-3); SQUAMOUS EPITHELIAL CELL UR AU 0 /HPF (0-6); UROBILINOGEN, URINE AUTO 0.2 mg/dL (0.0-2.0); WBC, URINE AUTO 1 /HPF (0-3)
[2021-03-30] MEDS ORDERED: VANCOMYCIN HCL 1,000 MG, VIAL MATE ADAPTER 1 EACH in NS 250 ML IV ONE ×4 (01:00)
[2021-03-30] MEDS: KCL 10MEQ/100ML SWI (KRUN) 10 MEQ in IV 1 EA IV SCH ×3 (01:01→05:23)
[2021-03-30] MEDS: **hydrALAZINE HCL** 25 MG TAB PO PRN ×2 (01:02→16:13)
[2021-03-30 02:03] LABS: TOTAL PROTEIN,RANDOM URINE 87.4 MG/DL (0.0-12.0)
[2021-03-30 07:37] LABS: HEMATOCRIT 39.3 % (42.0-52.0); HEMOGLOBIN 12.8 g/dl (13.5-17.5); MEAN CORPUSCULAR HEMOGLOBIN 27.6 pg (27.0-33.0); MEAN CORPUSCULAR HGB CONC 32.6 g/dl (32.0-36.5); MEAN CORPUSCULAR VOLUME 84.9 fl (80.0-96.0); PLATELET COUNT, AUTOMATED 235 10^3/uL (150-450); RED BLOOD COUNT 4.63 10^6/uL (4.30-6.10); WHITE BLOOD COUNT 12.1 10^3/uL (4.0-10.0)
[2021-03-30 07:55] LABS: BLOOD UREA NITROGEN 14 MG/DL (7-18); CALCIUM LEVEL 8.7 MG/DL (8.5-10.1); CARBON DIOXIDE LEVEL 30 MEQ/L (21-32); CHLORIDE LEVEL 105 MEQ/L (98-107); CREATININE FOR GFR 1.29 MG/DL (0.70-1.30); GLOMERULAR FILTRATION RATE > 60.0 (>60); GLUCOSE, FASTING 102 MG/DL (70-100); MAGNESIUM LEVEL 2.1 MG/DL (1.8-2.4); POTASSIUM SERUM 3.3 MEQ/L (3.5-5.1); SODIUM LEVEL 142 MEQ/L (136-145)
[2021-03-30] MEDS ORDERED: amLODIPine 5 MG TAB PO SCH (09:00)
[2021-03-30] MEDS: VANCOMYCIN HCL 1,000 MG, VIAL MATE ADAPTER 1 EACH in NS 250 ML IV SCH ×2 (11:06→18:04)
[2021-03-30] MEDS: PERCOCET 5MG/325MG TAB PO PRN ×2 (11:28→18:04)
[2021-03-30] MEDS ORDERED: POTASSIUM CHLORIDE 10MEQ SR TABLET PO ONE (13:20)
[2021-03-30] MEDS: ACETAMINOPHEN TAB 650MG DOSE (2X325MG) PO PRN (14:50)
[2021-03-30] MEDS ORDERED: CHLORTHALIDONE 25 MG TAB PO ONE (18:00)
[2021-03-30] MEDS ORDERED: cloNIDine 0.1MG TABLET PO ONE (21:00)
[2021-03-30] MEDS: cefTRIAXone SOD 1 GM in D5W MINI-BAG PLUS 50 ML IV SCH (21:36)
[2021-03-30] MEDS: HEPARIN SOD (PORCINE) 5000UNITS/ML 1ML VIAL/SYRINGE SQ SCH (21:38)
[2021-03-31] VITALS (10 sets, daily range): BP systolic 162–198; BP diastolic 85–115; O2SAT 96–97
[2021-03-31] MEDS: PERCOCET 5MG/325MG TAB PO PRN ×4 (00:10→21:12)
[2021-03-31] MEDS: **hydrALAZINE HCL** 25 MG TAB PO SCH ×2 (00:11→06:17)
[2021-03-31] MEDS: VANCOMYCIN HCL 1,000 MG, VIAL MATE ADAPTER 1 EACH in NS 250 ML IV SCH (02:13)
[2021-03-31] MEDS ORDERED: VANCOMYCIN HCL 500 MG in D5W MINI-BAG PLUS 100 ML IV ONE (03:00)
[2021-03-31 05:33] LABS: HEMATOCRIT 35.9 % (42.0-52.0); HEMOGLOBIN 11.7 g/dl (13.5-17.5); MEAN CORPUSCULAR HEMOGLOBIN 27.6 pg (27.0-33.0); MEAN CORPUSCULAR HGB CONC 32.6 g/dl (32.0-36.5); MEAN CORPUSCULAR VOLUME 84.7 fl (80.0-96.0); PLATELET COUNT, AUTOMATED 207 10^3/uL (150-450); RED BLOOD COUNT 4.24 10^6/uL (4.30-6.10); WHITE BLOOD COUNT 10.1 10^3/uL (4.0-10.0)
[2021-03-31 06:01] LABS: BLOOD UREA NITROGEN 13 MG/DL (7-18); CALCIUM LEVEL 8.6 MG/DL (8.5-10.1); CARBON DIOXIDE LEVEL 32 MEQ/L (21-32); CHLORIDE LEVEL 106 MEQ/L (98-107); CREATININE FOR GFR 1.05 MG/DL (0.70-1.30); GLOMERULAR FILTRATION RATE > 60.0 (>60); GLUCOSE, FASTING 93 MG/DL (70-100); MAGNESIUM LEVEL 1.8 MG/DL (1.8-2.4); POTASSIUM SERUM 2.9 MEQ/L (3.5-5.1); SODIUM LEVEL 143 MEQ/L (136-145)
[2021-03-31] MEDS: ACETAMINOPHEN TAB 650MG DOSE (2X325MG) PO PRN (06:16)
[2021-03-31] MEDS ORDERED: POTASSIUM CHLORIDE 10MEQ SR TABLET PO ONE ×3 (07:00→09:00)
[2021-03-31] MEDS ORDERED: MAG SULF 1GM/100ML (MAG RUN) 1 GM in IV 1 EA IV SCH (08:00)
[2021-03-31] MEDS: CHLORTHALIDONE 25 MG TAB PO SCH (08:02)
[2021-03-31] MEDS: HEPARIN SOD (PORCINE) 5000UNITS/ML 1ML VIAL/SYRINGE SQ SCH ×2 (08:03→21:12)
[2021-03-31] MEDS: lisinopriL 40 MG TAB PO SCH (08:03)
[2021-03-31] MEDS ORDERED: amLODIPine 5 MG TAB PO SCH (09:00)
[2021-03-31] MEDS ORDERED: KCL 10MEQ/100ML SWI (KRUN) 10 MEQ in IV 1 EA IV SCH (09:00)
[2021-03-31] MEDS ORDERED: hydrOXYzine 50 MG TAB PO PRN (09:25)
[2021-03-31] MEDS ORDERED: VANCOMYCIN HCL 750 MG, VIAL MATE ADAPTER 1 EACH in NS 250 ML IV SCH ×2 (10:00→11:00)
[2021-03-31] MEDS: **hydrALAZINE** 50 MG TAB PO SCH ×3 (11:33→23:58)
[2021-03-31 17:07] LABS: Lyme Disease IgG/IgM Antibodie <0.91 ISR (0.00-0.90); Lyme Disease IgM Ab Quantitati <0.80 index (0.00-0.79)
[2021-03-31] MEDS: hydrALAZINE 20MG/ML 1ML VIAL (J0360 PER 20MG) IV PRN (21:11)
[2021-04-01] VITALS (13 sets, daily range): BP systolic 142–196; BP diastolic 75–121; O2SAT 91–99
[2021-04-01] MEDS: hydrALAZINE 20MG/ML 1ML VIAL (J0360 PER 20MG) IV PRN (04:21)
[2021-04-01] MEDS: **hydrALAZINE** 50 MG TAB PO SCH (05:39)
[2021-04-01 07:25] LABS: HEMATOCRIT 39.4 % (42.0-52.0); HEMOGLOBIN 12.9 g/dl (13.5-17.5); MEAN CORPUSCULAR HEMOGLOBIN 27.4 pg (27.0-33.0); MEAN CORPUSCULAR HGB CONC 32.7 g/dl (32.0-36.5); MEAN CORPUSCULAR VOLUME 83.7 fl (80.0-96.0); PLATELET COUNT, AUTOMATED 266 10^3/uL (150-450); RED BLOOD COUNT 4.71 10^6/uL (4.30-6.10); WHITE BLOOD COUNT 9.9 10^3/uL (4.0-10.0)
[2021-04-01 08:04] LABS: BLOOD UREA NITROGEN 14 MG/DL (7-18); CALCIUM LEVEL 10.2 MG/DL (8.5-10.1); CARBON DIOXIDE LEVEL 31 MEQ/L (21-32); CHLORIDE LEVEL 103 MEQ/L (98-107); CREATININE FOR GFR 1.03 MG/DL (0.70-1.30); GLOMERULAR FILTRATION RATE > 60.0 (>60); GLUCOSE, FASTING 90 MG/DL (70-100); MAGNESIUM LEVEL 2.1 MG/DL (1.8-2.4); POTASSIUM SERUM 3.3 MEQ/L (3.5-5.1); SODIUM LEVEL 141 MEQ/L (136-145)
[2021-04-01] MEDS: CHLORTHALIDONE 25 MG TAB PO SCH (08:46)
[2021-04-01] MEDS: HEPARIN SOD (PORCINE) 5000UNITS/ML 1ML VIAL/SYRINGE SQ SCH (08:46)
[2021-04-01] MEDS: PERCOCET 5MG/325MG TAB PO PRN (08:47)
[2021-04-01] MEDS: lisinopriL 40 MG TAB PO SCH (08:49)
[2021-04-01] MEDS ORDERED: LABETALOL 100MG/20ML VIAL IV STA (09:44)
[2021-04-01] MEDS ORDERED: AMLO1TAB25 PO (09:56)
[2021-04-01] MEDS ORDERED: LISI40TA4 PO (09:56)
[2021-04-01] MEDS ORDERED: ACET1TAB55 PO (09:56)
[2021-04-01] MEDS ORDERED: HYDR50TA PO (09:56)
[2021-04-01] MEDS ORDERED: ULTR50TA8 PO (09:56)
[2021-04-01] MEDS ORDERED: CHLO50TA PO (09:56)
[2021-04-01] MEDS ORDERED: POTASSIUM CHLORIDE 10MEQ SR TABLET PO ONE (10:00)
[2021-04-01] MEDS ORDERED: **hydrALAZINE** 50 MG TAB PO ONE (10:00)
[2021-04-03 11:19] LABS: PTH INTACT 55.8 PG/ML (18.5-88.0)
[2021-04-12] MEDS ORDERED: HYDR50TA PO (19:20)
[2021-04-12] MEDS ORDERED: TRAM50TA2 PO (19:20)
[2021-04-12] MEDS ORDERED: ACET1TAB55 PO (19:20)
[2021-04-12] MEDS ORDERED: LISI40TA4 PO (19:20)
[2021-04-12] MEDS ORDERED: AMLO1TAB25 PO (19:20)
[2021-04-13] MEDS ORDERED: ASPI-551 PO (16:09)
[2021-04-13] MEDS ORDERED: TRAM50TA2 PO (16:09)
[2021-04-13] MEDS ORDERED: BACT800T5 PO (16:09)
[2021-04-28] MEDS ORDERED: DOXY100T PO (08:17)
== END 2021-04-01 12:52 | disposition home or self-care (01) | DRG 313 ==
LOC: M ED 09:56 → M ED INP 19:02 → M MS5PR 03-30 → M PCU 03-31 14:33
PROVIDERS: ADMIT Family Medicine; ATTEND Family Medicine
PROC: 0S9F3ZX Drainage of Right Ankle Joint, Percutaneous Approach, Diagnostic (ICD-10-PCS; 2021-03-29)
PROC: 0S9 Lower Joints, Drainage (ICD-10-PCS; principal; 2021-03-29 16:30)
DX: M11.871 Other specified crystal arthropathies, right ankle and foot (principal); Z68.41 Body mass index [BMI] 40.0-44.9, adult; I10 Essential (primary) hypertension; E66.01 Morbid (severe) obesity due to excess calories; E87.6 Hypokalemia; I16.0 Hypertensive urgency; Z20.822 Contact with and (suspected) exposure to COVID-19; Z91.018 Allergy to other foods

== ENCOUNTER 2021-05-23 13:45 | Emergency (ER) | payer OTHER ==
[~2021-05-23] VITALS: Ht 182.9 cm; Wt 113.6 kg
[~2021-05-23 13:45] MED LIST changes: +ACET1TAB55 PO; +AMLO1TAB25 PO; +ASPI-551 PO; +BACT800T5 PO; +CHLO50TA PO; +DOXY100T PO; +HYDR50TA PO; +LISI40TA4 PO; +TRAM50TA2 PO; +ULTR50TA8 PO; -VANCOMYCIN HCL 2,000 MG in D5W 500 ML IV SCH
[2021-05-23] MEDS ORDERED: **hydrALAZINE HCL** 25 MG TAB PO ONE (14:10)
[2021-05-23 14:58] LABS: BASO % 0.3 % (0.0-1.0); EOS # 0.1 10^3/uL (0.0-0.5); EOS % 0.6 % (0.0-3.0); HEMATOCRIT 39.6 % (42.0-52.0); HEMOGLOBIN 13.1 g/dl (13.5-17.5); LYMPH # 2.4 10^3/uL (1.5-5.0); LYMPH % 20.4 % (24.0-44.0); MEAN CORPUSCULAR HEMOGLOBIN 26.7 pg (27.0-33.0); MEAN CORPUSCULAR HGB CONC 33.1 g/dl (32.0-36.5); MEAN CORPUSCULAR VOLUME 80.8 fl (80.0-96.0); MONO % 8.2 % (2.0-8.0); NEUTROPHILS # 8.2 10^3/uL (1.5-8.5); NEUTROPHILS % 70.2 % (36.0-66.0); PLATELET COUNT, AUTOMATED 339 10^3/uL (150-450); WHITE BLOOD COUNT 11.7 10^3/uL (4.0-10.0)
[2021-05-23 15:24] LABS: MB/CK RELATIVE INDEX 0.45 (< OR =4)
[2021-05-23 15:31] LABS: ALBUMIN 4.1 GM/DL (3.2-5.2); ALT/SGPT 52 U/L (12-78); BILIRUBIN,DIRECT 0.1 MG/DL (0.0-0.2); BILIRUBIN,TOTAL 0.4 MG/DL (0.2-1.0); BLOOD UREA NITROGEN 14 MG/DL (7-18); CALCIUM LEVEL 9.2 MG/DL (8.5-10.1); CARBON DIOXIDE LEVEL 28 MEQ/L (21-32); CHLORIDE LEVEL 103 MEQ/L (98-107); CREATININE FOR GFR 1.37 MG/DL (0.70-1.30); GLOMERULAR FILTRATION RATE > 60.0 (>60); GLUCOSE, FASTING 89 MG/DL (70-100); NT-PRO BNP 179 PG/ML (<125); POTASSIUM SERUM 3.3 MEQ/L (3.5-5.1); SODIUM LEVEL 139 MEQ/L (136-145); TOTAL PROTEIN 8.7 GM/DL (6.4-8.2)
[2021-05-23 15:54] LABS: APPEARANCE, URINE HAZY (CLEAR); BACTERIA, URINE AUTO NEGATIVE (NEGATIVE); BILIRUBIN, URINE AUTO NEGATIVE (NEGATIVE); BLOOD, URINE BLOOD NEGATIVE (NEGATIVE); COLOR, URINE YELLOW (YELLOW); GLUCOSE, URINE (UA) AUTO NEGATIVE (NEGATIVE); KETONE, URINE AUTO TRACE mg/dL (NEGATIVE); LEUKOCYTE ESTERASE, URINE AUTO NEGATIVE (NEGATIVE); MUCUS, URINE SMALL (NEGATIVE); NITRITE, URINE AUTO NEGATIVE (NEGATIVE); PROTEIN, URINE AUTO 3+ mg/dL (NEGATIVE); RBC, URINE AUTO 1 /HPF (0-3); SPECIFIC GRAVITY URINE AUTO 1.019 (1.002-1.035); SQUAMOUS EPITHELIAL CELL UR AU 0 /HPF (0-6); UROBILINOGEN, URINE AUTO 0.2 mg/dL (0.0-2.0); WBC, URINE AUTO 2 /HPF (0-3)
[2021-05-23] MEDS ORDERED: diphenhydrAMINE 50MG/ML VIAL (J1200) IV ONE (16:15)
[2021-05-23] MEDS ORDERED: ACETAMINOPHEN 500 MG TAB PO ONE (16:15)
[2021-05-23] MEDS ORDERED: METOCLOPRAMIDE INJ 10MG/2ML VIAL (J2765 PER 1) IV ONE (16:15)
[2021-05-23] MEDS ORDERED: NS 1,000 ML IV ONE (16:15)
[2021-05-23] MEDS ORDERED: hydrALAZINE 20MG/ML 1ML VIAL (J0360 PER 20MG) IV STA (16:50)
[2021-05-23 16:52] LABS: CK-MB VALUE MASS 3.8 NG/ML (<3.6); MB/CK RELATIVE INDEX 0.44 (< OR =4)
[2021-05-23 17:19] VITALS: BP 180/110
[2021-05-23 17:46] VITALS: BP 142/77
[2021-05-23] MEDS ORDERED: HYDR-3911 PO (18:10)
== END 2021-05-23 18:42 | disposition home or self-care (01) ==
LOC: M ED 13:45 → EDBD 13:45 → M ED 18:42
DX: R03.0 Elevated blood-pressure reading, without diagnosis of hypertension (principal); F12.10 Cannabis abuse, uncomplicated; Z79.82 Long term (current) use of aspirin; Z79.899 Other long term (current) drug therapy; Z91.018 Allergy to other foods
CPT/HCPCS: 70450; 71045; 80048; 80076; 81001; 82550; 82553; 83880; 84443; 85025; 93005; 93041; 94760; 96361; 96374; 96375; 99285; J0360; J1200; J2765

== ENCOUNTER → 2021-06-26 | Outpatient (CLI) | payer OTHER ==
[~2021-06-26] MED LIST changes: +HYDR-3911 PO
[2021-06-26 14:01] LABS: CALCIUM LEVEL 9.4 MG/DL (8.5-10.1); CREATININE FOR GFR 1.46 MG/DL (0.70-1.30); GLOMERULAR FILTRATION RATE 58.8 (>60); POTASSIUM SERUM 3.8 MEQ/L (3.5-5.1)
== END ==
LOC: M PLALAB 11:33
PROVIDERS: ATTEND Student in an Organized Health Care Education/Training Program
DX: E87.6 Hypokalemia (principal)

== ENCOUNTER → 2021-08-07 | Outpatient (CLI) | payer OTHER ==
[2021-08-07 11:23] LABS: BASO % 0.3 % (0.0-1.0); EOS # 0.2 10^3/uL (0.0-0.5); EOS % 2.3 % (0.0-3.0); HEMATOCRIT 41.1 % (42.0-52.0); HEMOGLOBIN 13.3 g/dl (13.5-17.5); LYMPH # 2.2 10^3/uL (1.5-5.0); LYMPH % 30.5 % (24.0-44.0); MEAN CORPUSCULAR HEMOGLOBIN 27.2 pg (27.0-33.0); MEAN CORPUSCULAR HGB CONC 32.4 g/dl (32.0-36.5); MONO # 0.6 10^3/uL (0.0-0.8); MONO % 8.7 % (2.0-8.0); NEUTROPHILS # 4.2 10^3/uL (1.5-8.5); NEUTROPHILS % 57.8 % (36.0-66.0); PLATELET COUNT, AUTOMATED 269 10^3/uL (150-450); RED BLOOD COUNT 4.89 10^6/uL (4.30-6.10); WHITE BLOOD COUNT 7.3 10^3/uL (4.0-10.0)
[2021-08-07 11:46] LABS: ERYTHROCYTE SEDIMENTATION RATE 11 mm/hr (0-15)
[2021-08-07 12:11] LABS: ALT/SGPT 71 U/L (12-78); BILIRUBIN,TOTAL 0.4 MG/DL (0.2-1.0); BLOOD UREA NITROGEN 17 MG/DL (7-18); CALCIUM LEVEL 9.6 MG/DL (8.5-10.1); CARBON DIOXIDE LEVEL 30 MEQ/L (21-32); CHLORIDE LEVEL 105 MEQ/L (98-107); FERRITIN 200 NG/ML (26-388); GLOMERULAR FILTRATION RATE > 60.0 (>60); GLUCOSE, FASTING 94 MG/DL (70-100); IRON (FE) 72 UG/DL (65-175); MAGNESIUM LEVEL 1.8 MG/DL (1.8-2.4); PERCENT SATURATION 18.8 % (19.7-50.0); POTASSIUM SERUM 3.1 MEQ/L (3.5-5.1); PTH INTACT 94.9 PG/ML (18.5-88.0); SODIUM LEVEL 143 MEQ/L (136-145); TOTAL 25(OH) VITAMIN D 11.3 NG/ML (30.0-100.0); TOTAL IRON BINDING CAPACITY 383 UG/DL (250-450); TOTAL PROTEIN 7.6 GM/DL (6.4-8.2)
== END ==
LOC: M LAB 09:59
PROVIDERS: ATTEND Internal Medicine Rheumatology
DX: M13.0 Polyarthritis, unspecified (principal)

== ENCOUNTER → 2021-10-19 | Outpatient (CLI) | payer OTHER ==
[~2021-10-19] MED LIST changes: +MITI1CAP PO
== END ==
LOC: M LABSMTC 09:52
PROVIDERS: ATTEND Anesthesiology
DX: Z01.812 Encounter for preprocedural laboratory examination (principal); Z20.822 Contact with and (suspected) exposure to COVID-19

== ENCOUNTER 2021-10-24 10:21 | Day surgery (SDC) | payer OTHER ==
[~2021-10-24] VITALS: Ht 175.3 cm; Wt 127.6 kg
[2021-10-24 10:52] VITALS: BP 138/81
[2021-10-24] MEDS ORDERED: ceFAZolin SOD 2 GM in IV 1 EA IV ONE (11:25)
[2021-10-24] MEDS ORDERED: ceFAZolin SOD 1 GM in D5W MINI-BAG PLUS 50 ML IV ONE (11:25)
== END 2021-10-24 10:54 | disposition home or self-care (01) ==
LOC: M SDC 10:21
PROVIDERS: ATTEND Plastic Surgery Surgery of the Hand
DX: S91.001A Unspecified open wound, right ankle, initial encounter (principal); M10.071 Idiopathic gout, right ankle and foot; Z53.29 Procedure and treatment not carried out because of patient's decision for other reasons

== ENCOUNTER → 2021-10-24 | Outpatient (CLI) | payer OTHER ==
[2021-10-24 11:04] LABS: BASO % 0.3 % (0.0-1.0); EOS # 0.5 10^3/uL (0.0-0.5); EOS % 5.9 % (0.0-3.0); HEMATOCRIT 39.7 % (42.0-52.0); HEMOGLOBIN 12.9 g/dl (13.5-17.5); LYMPH # 2.5 10^3/uL (1.5-5.0); LYMPH % 28.8 % (24.0-44.0); MEAN CORPUSCULAR HGB CONC 32.5 g/dl (32.0-36.5); MEAN CORPUSCULAR VOLUME 86.3 fl (80.0-96.0); MONO # 0.8 10^3/uL (0.0-0.8); MONO % 8.7 % (2.0-8.0); NEUTROPHILS # 4.9 10^3/uL (1.5-8.5); NEUTROPHILS % 56.1 % (36.0-66.0); PLATELET COUNT, AUTOMATED 270 10^3/uL (150-450); WHITE BLOOD COUNT 8.8 10^3/uL (4.0-10.0)
[2021-10-24 11:48] LABS: ALBUMIN 3.4 GM/DL (3.2-5.2); ALT/SGPT 58 U/L (12-78); BILIRUBIN,TOTAL 0.3 MG/DL (0.2-1.0); BLOOD UREA NITROGEN 19 MG/DL (7-18); CARBON DIOXIDE LEVEL 30 MEQ/L (21-32); CHLORIDE LEVEL 108 MEQ/L (98-107); CHOLESTEROL LEVEL 133 MG/DL (<200); CHOLESTEROL RISK RATIO 2.145 (<5); CREATININE FOR GFR 1.23 MG/DL (0.70-1.30); GLOMERULAR FILTRATION RATE > 60.0 (>60); GLUCOSE, FASTING 90 MG/DL (70-100); HDL CHOLESTEROL 62 MG/DL (>40); LDL CHOLESTEROL 55 MG/DL (<100); NON-HDL-C 71 MG/DL; POTASSIUM SERUM 3.5 MEQ/L (3.5-5.1); SODIUM LEVEL 143 MEQ/L (136-145); TOTAL PROTEIN 7.1 GM/DL (6.4-8.2); TRIGLYCERIDES LEVEL 79 MG/DL (<150)
== END ==
LOC: M PLALAB 08:32
PROVIDERS: ATTEND Student in an Organized Health Care Education/Training Program
DX: Z01.818 Encounter for other preprocedural examination (principal); I10 Essential (primary) hypertension

== ENCOUNTER 2021-10-31 10:04 | Inpatient (IN) | payer OTHER ==
[~2021-10-31] VITALS: Ht 175.3 cm; Wt 126.4 kg
[2021-10-31] MEDS ORDERED: LR 1,000 ML IV SCH ×2 (10:05→13:45)
[2021-10-31] MEDS ORDERED: propofoL 200 MG/20 ML VIAL As Ordered ONE (10:51)
[2021-10-31] MEDS ORDERED: LIDOCAINE 2% INJ 100 MG/5 ML SYRINGE As Ordered ONE (10:51)
[2021-10-31] MEDS ORDERED: fentaNYL 100 MCG/2 ML INJECTION As Ordered ONE ×5 (10:52→13:39)
[2021-10-31] MEDS ORDERED: MIDAZOLAM INJ 2MG/2ML VIAL (J2250 PER 1MG) As Ordered ONE (10:52)
[2021-10-31] MEDS ORDERED: BUPIVACAINE HCL 0.25% 10ML VIAL As Ordered ONE (11:53)
[2021-10-31] MEDS ORDERED: BUPIVACAINE LIPOSOME/PF 1.3% 20ML VIAL (13.3MG/ML)(EXPAREL) As Ordered ONE (11:53)
[2021-10-31] MEDS ORDERED: GENTAMICIN SULF 80MG/2ML VIAL As Ordered ONE (11:53)
[2021-10-31] MEDS ORDERED: ceFAZolin 2 GM/D5W 50 ML IV BAG (J0690 PER 500MG) As Ordered ONE (12:40)
[2021-10-31] MEDS ORDERED: ceFAZolin 1GM VIAL (J0690 PER 500MG) As Ordered ONE (12:41)
[2021-10-31] MEDS ORDERED: ceFAZolin SOD 1 GM in D5W MINI-BAG PLUS 50 ML IV ONE (12:50)
[2021-10-31] MEDS ORDERED: ceFAZolin SOD 2 GM in IV 1 EA IV ONE (12:50)
[2021-10-31] MEDS ORDERED: ONDANSETRON 4MG 2ML VIAL As Ordered ONE (13:17)
[2021-10-31] MEDS ORDERED: dexameTHASONE 4 MG/ML 1ML VIAL (J1100 PER 1MG) As Ordered ONE (13:17)
[2021-10-31] MEDS ORDERED: KETOROLAC 60MG 2ML VIAL As Ordered ONE (13:17)
[2021-10-31] MEDS ORDERED: ACETAMINOPHEN 1000MG 100ML IV BTL (OFIRMEV) (J0131 PER 10MG) As Ordered ONE (13:20)
[2021-10-31] MEDS ORDERED: oxyCODONE 5MG TAB PO PRN (13:45)
[2021-10-31] MEDS ORDERED: ONDANSETRON 4MG 2ML VIAL IV PRN (13:45)
[2021-10-31] MEDS ORDERED: HYDROMORPHONE HCL 0.5 MG/ 0.5 ML SYRINGE (J1170 PER 1) IV PRN (13:45)
[2021-10-31] MEDS ORDERED: fentaNYL 100 MCG/2 ML INJECTION IV PRN (13:45)
[2021-10-31 15:52] VITALS: BP 141/83
[2021-10-31 16:00] VITALS: BP_SYST 141; BP_SYST 157; BP_DIAS 83; BP_DIAS 85
[2021-10-31] MEDS ORDERED: LR 1,000 ML IV ONE (17:10)
[2021-10-31 19:33] LABS: HEMATOCRIT 38.6 % (42.0-52.0); HEMOGLOBIN 12.8 g/dl (13.5-17.5); MEAN CORPUSCULAR HEMOGLOBIN 28.1 pg (27.0-33.0); MEAN CORPUSCULAR HGB CONC 33.2 g/dl (32.0-36.5); MEAN CORPUSCULAR VOLUME 84.8 fl (80.0-96.0); PLATELET COUNT, AUTOMATED 311 10^3/uL (150-450); RED BLOOD COUNT 4.55 10^6/uL (4.30-6.10); WHITE BLOOD COUNT 9.4 10^3/uL (4.0-10.0)
[2021-10-31 19:59] LABS: CALCIUM LEVEL 9.5 MG/DL (8.5-10.1); CREATININE FOR GFR 1.47 MG/DL (0.70-1.30); GLOMERULAR FILTRATION RATE 58.4 (>60); MAGNESIUM LEVEL 2.1 MG/DL (1.8-2.4); PHOSPHORUS LEVEL 1.7 MG/DL (2.5-4.9); POTASSIUM SERUM 3.7 MEQ/L (3.5-5.1)
[2021-10-31] MEDS: ceFAZolin SOD 2 GM in IV 1 EA IV SCH (21:20)
[2021-10-31] MEDS: **hydrALAZINE** 50 MG TAB PO SCH (21:30)
[2021-10-31] MEDS: HEPARIN SOD (PORCINE) 5000UNITS/ML 1ML VIAL/SYRINGE SQ SCH (21:30)
[2021-10-31 22:01] VITALS: BP 158/88
[2021-11-01 02:00] VITALS: BP 145/80
[2021-11-01] MEDS: ceFAZolin SOD 2 GM in IV 1 EA IV SCH ×3 (05:30→22:59)
[2021-11-01] MEDS: HEPARIN SOD (PORCINE) 5000UNITS/ML 1ML VIAL/SYRINGE SQ SCH ×3 (05:30→22:59)
[2021-11-01 06:00] VITALS: BP 190/100
[2021-11-01 06:07] LABS: HEMATOCRIT 36.7 % (42.0-52.0); HEMOGLOBIN 12.1 g/dl (13.5-17.5); MEAN CORPUSCULAR HEMOGLOBIN 28.2 pg (27.0-33.0); MEAN CORPUSCULAR VOLUME 85.5 fl (80.0-96.0); PLATELET COUNT, AUTOMATED 300 10^3/uL (150-450); RED BLOOD COUNT 4.29 10^6/uL (4.30-6.10); WHITE BLOOD COUNT 14.4 10^3/uL (4.0-10.0)
[2021-11-01 06:42] LABS: BLOOD UREA NITROGEN 18 MG/DL (7-18); CALCIUM LEVEL 8.9 MG/DL (8.5-10.1); CARBON DIOXIDE LEVEL 27 MEQ/L (21-32); CHLORIDE LEVEL 110 MEQ/L (98-107); CREATININE FOR GFR 1.29 MG/DL (0.70-1.30); GLOMERULAR FILTRATION RATE > 60.0 (>60); GLUCOSE, FASTING 109 MG/DL (70-100); POTASSIUM SERUM 4.1 MEQ/L (3.5-5.1); SODIUM LEVEL 140 MEQ/L (136-145)
[2021-11-01] MEDS: **hydrALAZINE** 50 MG TAB PO SCH ×3 (07:04→23:02)
[2021-11-01] MEDS: COLCHICINE 0.6 MG TABLET PO SCH (09:24)
[2021-11-01] MEDS: lisinopriL 40MG TAB PO SCH (09:24)
[2021-11-01 10:29] VITALS: BP 147/85
[2021-11-01 14:34] VITALS: BP 187/111
[2021-11-01 20:12] VITALS: BP 163/95
[2021-11-02] VITALS (8 sets, daily range): BP systolic 147–190; BP diastolic 67–120
[2021-11-02] MEDS ORDERED: NORCO, ANEXSIA 5/325MG TABLET (HYDROcodone/ACETAMINOPHEN) PO ONE (02:00)
[2021-11-02] MEDS ORDERED: carisoprodoL 350 MG TAB PO PRN (02:00)
[2021-11-02] MEDS: ceFAZolin SOD 2 GM in IV 1 EA IV SCH (05:14)
[2021-11-02] MEDS: HEPARIN SOD (PORCINE) 5000UNITS/ML 1ML VIAL/SYRINGE SQ SCH ×3 (05:14→20:53)
[2021-11-02 06:37] LABS: BLOOD UREA NITROGEN 14 MG/DL (7-18); CALCIUM LEVEL 8.8 MG/DL (8.5-10.1); CARBON DIOXIDE LEVEL 28 MEQ/L (21-32); CHLORIDE LEVEL 110 MEQ/L (98-107); CREATININE FOR GFR 1.12 MG/DL (0.70-1.30); GLOMERULAR FILTRATION RATE > 60.0 (>60); GLUCOSE, FASTING 83 MG/DL (70-100); PHOSPHORUS LEVEL 3.3 MG/DL (2.5-4.9); POTASSIUM SERUM 3.5 MEQ/L (3.5-5.1); SODIUM LEVEL 146 MEQ/L (136-145)
[2021-11-02] MEDS: COLCHICINE 0.6 MG TABLET PO SCH (08:57)
[2021-11-02] MEDS: **hydrALAZINE** 50 MG TAB PO SCH (08:57)
[2021-11-02] MEDS: lisinopriL 40MG TAB PO SCH (08:57)
[2021-11-02] MEDS: LevoFLOXacin 750 MG TABLET PO SCH (09:20)
[2021-11-02] MEDS ORDERED: **hydrALAZINE HCL** 25 MG TAB PO ONE (13:10)
[2021-11-02] MEDS ORDERED: MORPHINE 2 MG/ML 1ML VIAL IV PRN (13:35)
[2021-11-02] MEDS: **hydrALAZINE HCL** 25 MG TAB PO SCH ×2 (13:43→20:52)
[2021-11-03 02:00] VITALS: BP 172/108
[2021-11-03 02:05] VITALS: BP 180/100
[2021-11-03] MEDS ORDERED: cloNIDine 0.1MG TABLET PO ONE (03:00)
[2021-11-03] MEDS: LevoFLOXacin 750 MG TABLET PO SCH (04:43)
[2021-11-03] MEDS: HEPARIN SOD (PORCINE) 5000UNITS/ML 1ML VIAL/SYRINGE SQ SCH ×3 (04:44→22:39)
[2021-11-03] MEDS ORDERED: lisinopriL 40MG TAB PO SCH (05:00)
[2021-11-03 06:00] VITALS: BP 171/106
[2021-11-03 06:26] LABS: HEMATOCRIT 37.8 % (42.0-52.0); HEMOGLOBIN 12.3 g/dl (13.5-17.5); MEAN CORPUSCULAR HEMOGLOBIN 27.6 pg (27.0-33.0); MEAN CORPUSCULAR HGB CONC 32.5 g/dl (32.0-36.5); MEAN CORPUSCULAR VOLUME 84.9 fl (80.0-96.0); PLATELET COUNT, AUTOMATED 270 10^3/uL (150-450); RED BLOOD COUNT 4.45 10^6/uL (4.30-6.10); WHITE BLOOD COUNT 8.3 10^3/uL (4.0-10.0)
[2021-11-03 06:54] LABS: BLOOD UREA NITROGEN 11 MG/DL (7-18); CALCIUM LEVEL 9.1 MG/DL (8.5-10.1); CARBON DIOXIDE LEVEL 32 MEQ/L (21-32); CHLORIDE LEVEL 106 MEQ/L (98-107); CREATININE FOR GFR 1.17 MG/DL (0.70-1.30); GLOMERULAR FILTRATION RATE > 60.0 (>60); GLUCOSE, FASTING 90 MG/DL (70-100); MAGNESIUM LEVEL 1.8 MG/DL (1.8-2.4); PHOSPHORUS LEVEL 3.4 MG/DL (2.5-4.9); POTASSIUM SERUM 3.2 MEQ/L (3.5-5.1); SODIUM LEVEL 140 MEQ/L (136-145)
[2021-11-03] MEDS: **hydrALAZINE** 50 MG TAB PO SCH ×3 (08:49→20:04)
[2021-11-03] MEDS: COLCHICINE 0.6 MG TABLET PO SCH (08:50)
[2021-11-03 10:00] VITALS: BP 175/96
[2021-11-03] MEDS ORDERED: CHLORTHALIDONE 25 MG TAB PO ONE (13:00)
[2021-11-03 14:00] VITALS: BP 173/95
[2021-11-03] MEDS ORDERED: POTASSIUM CHLORIDE 10MEQ SR TABLET PO ONE (14:55)
[2021-11-03] MEDS: CHLORTHALIDONE 25 MG TAB PO SCH (20:03)
[2021-11-03] MEDS: PERCOCET 5MG/325MG TAB PO PRN (23:23)
[2021-11-04] MEDS: LevoFLOXacin 750 MG TABLET PO SCH (05:53)
[2021-11-04] MEDS: HEPARIN SOD (PORCINE) 5000UNITS/ML 1ML VIAL/SYRINGE SQ SCH ×3 (05:54→20:25)
[2021-11-04 06:00] VITALS: BP 165/104
[2021-11-04 06:18] LABS: HEMATOCRIT 38.7 % (42.0-52.0); HEMOGLOBIN 12.6 g/dl (13.5-17.5); MEAN CORPUSCULAR HEMOGLOBIN 27.9 pg (27.0-33.0); MEAN CORPUSCULAR HGB CONC 32.6 g/dl (32.0-36.5); MEAN CORPUSCULAR VOLUME 85.8 fl (80.0-96.0); PLATELET COUNT, AUTOMATED 304 10^3/uL (150-450); RED BLOOD COUNT 4.51 10^6/uL (4.30-6.10); WHITE BLOOD COUNT 11.3 10^3/uL (4.0-10.0)
[2021-11-04 06:39] LABS: BLOOD UREA NITROGEN 19 MG/DL (7-18); CALCIUM LEVEL 9.7 MG/DL (8.5-10.1); CARBON DIOXIDE LEVEL 30 MEQ/L (21-32); CHLORIDE LEVEL 106 MEQ/L (98-107); CREATININE FOR GFR 1.31 MG/DL (0.70-1.30); GLOMERULAR FILTRATION RATE > 60.0 (>60); GLUCOSE, FASTING 85 MG/DL (70-100); MAGNESIUM LEVEL 1.8 MG/DL (1.8-2.4); PHOSPHORUS LEVEL 6.9 MG/DL (2.5-4.9); POTASSIUM SERUM 3.6 MEQ/L (3.5-5.1); SODIUM LEVEL 141 MEQ/L (136-145)
[2021-11-04 08:00] VITALS: BP 172/116
[2021-11-04] MEDS: **hydrALAZINE** 50 MG TAB PO SCH ×3 (08:10→20:24)
[2021-11-04] MEDS: CHLORTHALIDONE 25 MG TAB PO SCH ×2 (08:11→16:33)
[2021-11-04] MEDS: cloNIDine 0.1MG TABLET PO SCH ×3 (08:11→20:24)
[2021-11-04] MEDS: COLCHICINE 0.6 MG TABLET PO SCH (08:12)
[2021-11-04] MEDS ORDERED: CHLORTHALIDONE 25 MG TAB PO SCH (09:00)
[2021-11-04] MEDS ORDERED: VALSARTAN 80 MG TAB (DIOVAN) PO SCH (09:00)
[2021-11-04 10:46] LABS: C REACTIVE PROTEIN QUANTITATIV < 0.30 MG/DL (0.00-0.30)
[2021-11-04 14:58] VITALS: BP 165/99
[2021-11-04] MEDS ORDERED: cloNIDine 0.1MG TABLET PO SCH (16:00)
[2021-11-04 21:42] VITALS: BP 144/85
[2021-11-05] MEDS: HEPARIN SOD (PORCINE) 5000UNITS/ML 1ML VIAL/SYRINGE SQ SCH ×3 (05:20→21:39)
[2021-11-05] MEDS: LevoFLOXacin 750 MG TABLET PO SCH (05:20)
[2021-11-05 06:00] VITALS: BP 141/90
[2021-11-05 07:10] LABS: HEMATOCRIT 39.5 % (42.0-52.0); MEAN CORPUSCULAR HEMOGLOBIN 28.2 pg (27.0-33.0); MEAN CORPUSCULAR HGB CONC 32.9 g/dl (32.0-36.5); MEAN CORPUSCULAR VOLUME 85.7 fl (80.0-96.0); PLATELET COUNT, AUTOMATED 282 10^3/uL (150-450); RED BLOOD COUNT 4.61 10^6/uL (4.30-6.10)
[2021-11-05 07:42] LABS: BLOOD UREA NITROGEN 17 MG/DL (7-18); CALCIUM LEVEL 9.7 MG/DL (8.5-10.1); CARBON DIOXIDE LEVEL 31 MEQ/L (21-32); CHLORIDE LEVEL 101 MEQ/L (98-107); CREATININE FOR GFR 1.38 MG/DL (0.70-1.30); GLOMERULAR FILTRATION RATE > 60.0 (>60); GLUCOSE, FASTING 85 MG/DL (70-100); MAGNESIUM LEVEL 1.8 MG/DL (1.8-2.4); PHOSPHORUS LEVEL 4.1 MG/DL (2.5-4.9); POTASSIUM SERUM 3.2 MEQ/L (3.5-5.1); SODIUM LEVEL 138 MEQ/L (136-145)
[2021-11-05] MEDS: COLCHICINE 0.6 MG TABLET PO SCH (09:35)
[2021-11-05] MEDS: **hydrALAZINE** 50 MG TAB PO SCH ×3 (09:36→20:36)
[2021-11-05] MEDS: cloNIDine 0.1MG TABLET PO SCH ×3 (09:36→20:37)
[2021-11-05] MEDS: CHLORTHALIDONE 25 MG TAB PO SCH ×2 (09:37→16:50)
[2021-11-05] MEDS ORDERED: POTASSIUM CHLORIDE 10MEQ SR TABLET PO ONE (10:50)
[2021-11-05] MEDS ORDERED: NS 0.45% 1,000 ML IV SCH (10:50)
[2021-11-05] MEDS ORDERED: ACETAMINOPHEN TAB 650MG DOSE (2X325MG) PO ONE (13:20)
[2021-11-05 15:09] VITALS: BP 171/89
[2021-11-05 22:00] VITALS: BP 157/91
[2021-11-06] MEDS: HEPARIN SOD (PORCINE) 5000UNITS/ML 1ML VIAL/SYRINGE SQ SCH ×3 (05:23→21:24)
[2021-11-06] MEDS: LevoFLOXacin 750 MG TABLET PO SCH (05:23)
[2021-11-06 05:31] LABS: HEMATOCRIT 41.2 % (42.0-52.0); HEMOGLOBIN 13.6 g/dl (13.5-17.5); MEAN CORPUSCULAR HEMOGLOBIN 28.4 pg (27.0-33.0); PLATELET COUNT, AUTOMATED 297 10^3/uL (150-450); RED BLOOD COUNT 4.79 10^6/uL (4.30-6.10); WHITE BLOOD COUNT 9.9 10^3/uL (4.0-10.0)
[2021-11-06 06:00] VITALS: BP 153/94
[2021-11-06] MEDS ORDERED: POTASSIUM CHLORIDE 10MEQ SR TABLET PO ONE (08:00)
[2021-11-06] MEDS: CHLORTHALIDONE 25 MG TAB PO SCH ×2 (08:33→16:00)
[2021-11-06] MEDS: cloNIDine 0.1MG TABLET PO SCH ×3 (08:34→21:26)
[2021-11-06] MEDS: **hydrALAZINE** 50 MG TAB PO SCH ×3 (08:34→21:25)
[2021-11-06] MEDS: COLCHICINE 0.6 MG TABLET PO SCH (08:35)
[2021-11-06] MEDS: NS 1,000 ML IV SCH ×2 (10:43→12:02)
[2021-11-06 14:00] VITALS: BP 156/92
[2021-11-06] MEDS ORDERED: ACETAMINOPHEN TAB 650MG DOSE (2X325MG) PO ONE (16:10)
[2021-11-06 19:41] VITALS: BP 124/91
[2021-11-07] MEDS: NS 1,000 ML IV SCH (01:01)
[2021-11-07] MEDS: HEPARIN SOD (PORCINE) 5000UNITS/ML 1ML VIAL/SYRINGE SQ SCH ×3 (05:19→21:37)
[2021-11-07] MEDS: LevoFLOXacin 750 MG TABLET PO SCH (05:19)
[2021-11-07 05:37] VITALS: BP 150/98
[2021-11-07 05:56] LABS: HEMATOCRIT 38.2 % (42.0-52.0); HEMOGLOBIN 12.7 g/dl (13.5-17.5); MEAN CORPUSCULAR HEMOGLOBIN 28.4 pg (27.0-33.0); MEAN CORPUSCULAR HGB CONC 33.2 g/dl (32.0-36.5); MEAN CORPUSCULAR VOLUME 85.5 fl (80.0-96.0); PLATELET COUNT, AUTOMATED 288 10^3/uL (150-450); RED BLOOD COUNT 4.47 10^6/uL (4.30-6.10); WHITE BLOOD COUNT 9.1 10^3/uL (4.0-10.0)
[2021-11-07 06:30] LABS: BLOOD UREA NITROGEN 20 MG/DL (7-18); CALCIUM LEVEL 9.5 MG/DL (8.5-10.1); CARBON DIOXIDE LEVEL 24 MEQ/L (21-32); CHLORIDE LEVEL 109 MEQ/L (98-107); CREATININE FOR GFR 1.38 MG/DL (0.70-1.30); GLOMERULAR FILTRATION RATE > 60.0 (>60); GLUCOSE, FASTING 85 MG/DL (70-100); MAGNESIUM LEVEL 1.8 MG/DL (1.8-2.4); PHOSPHORUS LEVEL 4.7 MG/DL (2.5-4.9); POTASSIUM SERUM 3.5 MEQ/L (3.5-5.1); SODIUM LEVEL 141 MEQ/L (136-145)
[2021-11-07] MEDS: LACTOBACILLUS ACIDOPHILUS CAP (BACID) PO SCH (08:17)
[2021-11-07] MEDS: COLCHICINE 0.6 MG TABLET PO SCH (08:17)
[2021-11-07] MEDS: CHLORTHALIDONE 25 MG TAB PO SCH ×2 (08:18→16:52)
[2021-11-07] MEDS: **hydrALAZINE** 50 MG TAB PO SCH ×3 (08:18→21:37)
[2021-11-07] MEDS: cloNIDine 0.1MG TABLET PO SCH (08:19)
[2021-11-07 14:00] VITALS: BP 169/109
[2021-11-07] MEDS ORDERED: VALSARTAN 80 MG TAB (DIOVAN) PO ONE (17:00)
[2021-11-07 20:08] VITALS: BP 161/107
[2021-11-07 22:29] VITALS: BP 169/111
[2021-11-07] MEDS ORDERED: LABETALOL 100MG TAB PO ONE (23:00)
[2021-11-08] VITALS (9 sets, daily range): BP systolic 124–177; BP diastolic 62–119
[2021-11-08] MEDS: LevoFLOXacin 750 MG TABLET PO SCH (06:24)
[2021-11-08 06:56] LABS: HEMATOCRIT 37.8 % (42.0-52.0); HEMOGLOBIN 12.7 g/dl (13.5-17.5); MEAN CORPUSCULAR HEMOGLOBIN 28.6 pg (27.0-33.0); MEAN CORPUSCULAR HGB CONC 33.6 g/dl (32.0-36.5); MEAN CORPUSCULAR VOLUME 85.1 fl (80.0-96.0); PLATELET COUNT, AUTOMATED 259 10^3/uL (150-450); RED BLOOD COUNT 4.44 10^6/uL (4.30-6.10); WHITE BLOOD COUNT 8.8 10^3/uL (4.0-10.0)
[2021-11-08 07:16] LABS: CREATININE FOR GFR 1.44 MG/DL (0.70-1.30); GLOMERULAR FILTRATION RATE 59.8 (>60); MAGNESIUM LEVEL 1.8 MG/DL (1.8-2.4); PHOSPHORUS LEVEL 5.6 MG/DL (2.5-4.9); POTASSIUM SERUM 3.2 MEQ/L (3.5-5.1)
[2021-11-08] MEDS ORDERED: POTASSIUM CHLORIDE 10MEQ SR TABLET PO ONE (07:30)
[2021-11-08] MEDS: **hydrALAZINE** 50 MG TAB PO SCH ×3 (08:00→21:08)
[2021-11-08] MEDS: CHLORTHALIDONE 25 MG TAB PO SCH (08:00)
[2021-11-08] MEDS: COLCHICINE 0.6 MG TABLET PO SCH (08:00)
[2021-11-08] MEDS: PERCOCET 5MG/325MG TAB PO PRN (08:03)
[2021-11-08] MEDS ORDERED: VALSARTAN 80 MG TAB (DIOVAN) PO SCH (09:00)
[2021-11-08] MEDS: LACTOBACILLUS ACIDOPHILUS CAP (BACID) PO SCH (09:00)
[2021-11-08 11:34] LABS: URIC ACID 8.8 MG/DL (3.5-7.2)
[2021-11-08] MEDS: D5W/0.45% SODIUM CHLORIDE 1,000 ML IV SCH ×2 (18:01→23:55)
[2021-11-08 18:25] LABS: CREATININE FOR GFR 1.47 MG/DL (0.70-1.30); GLOMERULAR FILTRATION RATE 58.4 (>60); POTASSIUM SERUM 3.5 MEQ/L (3.5-5.1)
[2021-11-08] MEDS: LABETALOL 200 MG TAB PO SCH (21:08)
[2021-11-08] MEDS: HEPARIN SOD (PORCINE) 5000UNITS/ML 1ML VIAL/SYRINGE SQ SCH (21:09)
[2021-11-08] MEDS ORDERED: D5W/0.45% SODIUM CHLORIDE 1,000 ML IV SCH (23:55)
[2021-11-09] VITALS (7 sets, daily range): BP systolic 121–159; BP diastolic 73–105
[2021-11-09] MEDS: LevoFLOXacin 750 MG TABLET PO SCH (06:07)
[2021-11-09] MEDS: LABETALOL 200 MG TAB PO SCH ×3 (06:09→21:44)
[2021-11-09 06:44] LABS: HEMATOCRIT 40.8 % (42.0-52.0); HEMOGLOBIN 13.4 g/dl (13.5-17.5); MEAN CORPUSCULAR HEMOGLOBIN 27.9 pg (27.0-33.0); MEAN CORPUSCULAR HGB CONC 32.8 g/dl (32.0-36.5); MEAN CORPUSCULAR VOLUME 84.8 fl (80.0-96.0); PLATELET COUNT, AUTOMATED 280 10^3/uL (150-450); RED BLOOD COUNT 4.81 10^6/uL (4.30-6.10); WHITE BLOOD COUNT 8.4 10^3/uL (4.0-10.0)
[2021-11-09 07:19] LABS: CREATININE FOR GFR 1.49 MG/DL (0.70-1.30); GLOMERULAR FILTRATION RATE 57.5 (>60); MAGNESIUM LEVEL 1.8 MG/DL (1.8-2.4); POTASSIUM SERUM 3.3 MEQ/L (3.5-5.1)
[2021-11-09] MEDS: COLCHICINE 0.6 MG TABLET PO SCH (08:56)
[2021-11-09] MEDS: VALSARTAN 80 MG TAB (DIOVAN) PO SCH (08:56)
[2021-11-09] MEDS: LACTOBACILLUS ACIDOPHILUS CAP (BACID) PO SCH (08:56)
[2021-11-09] MEDS: **hydrALAZINE** 50 MG TAB PO SCH ×3 (08:57→21:44)
[2021-11-09] MEDS: D5W/0.45% SODIUM CHLORIDE 1,000 ML IV SCH (08:58)
[2021-11-09] MEDS ORDERED: POTASSIUM CHLORIDE 10MEQ SR TABLET PO ONE ×2 (09:00→13:10)
[2021-11-09 09:58] LABS: APPEARANCE, URINE CLEAR (CLEAR); BACTERIA, URINE AUTO NEGATIVE (NEGATIVE); BILIRUBIN, URINE AUTO NEGATIVE (NEGATIVE); BLOOD, URINE BLOOD NEGATIVE (NEGATIVE); COLOR, URINE YELLOW (YELLOW); GLUCOSE, URINE (UA) AUTO NEGATIVE (NEGATIVE); KETONE, URINE AUTO NEGATIVE (NEGATIVE); LEUKOCYTE ESTERASE, URINE AUTO NEGATIVE (NEGATIVE); MUCUS, URINE SMALL (NEGATIVE); NITRITE, URINE AUTO NEGATIVE (NEGATIVE); PROTEIN, URINE AUTO 1+ mg/dL (NEGATIVE); RBC, URINE AUTO 1 /HPF (0-3); SPECIFIC GRAVITY URINE AUTO 1.018 (1.002-1.035); SQUAMOUS EPITHELIAL CELL UR AU 0 /HPF (0-6); UROBILINOGEN, URINE AUTO 0.2 mg/dL (0.0-2.0); WBC, URINE AUTO 1 /HPF (0-3)
[2021-11-09] MEDS ORDERED: MIDAZOLAM INJ 2MG/2ML VIAL (J2250 PER 1MG) As Ordered ONE (12:23)
[2021-11-09] MEDS ORDERED: fentaNYL 100 MCG/2 ML INJECTION As Ordered ONE ×2 (12:24→13:56)
[2021-11-09] MEDS ORDERED: LIDOCAINE 2% 100MG/5ML SDV (FOR ANES.) As Ordered ONE (12:25)
[2021-11-09] MEDS ORDERED: propofoL 200 MG/20 ML VIAL As Ordered ONE ×2 (13:02→14:32)
[2021-11-09] MEDS ORDERED: ROCURONIUM BROMIDE 50 MG/5 ML VIAL As Ordered ONE (13:04)
[2021-11-09] MEDS ORDERED: dexameTHASONE 4 MG/ML 1ML VIAL (J1100 PER 1MG) As Ordered ONE (13:04)
[2021-11-09] MEDS ORDERED: GENTAMICIN SULF 80MG/2ML VIAL As Ordered ONE (13:09)
[2021-11-09] MEDS ORDERED: EPINEPHrine INJ 1 MG/ML 1ML AMP As Ordered ONE (13:41)
[2021-11-09] MEDS ORDERED: PHENYLephrine 500MCG 5ML (100MCG/ML) SYRINGE As Ordered ONE ×2 (13:47→14:01)
[2021-11-09] MEDS ORDERED: ePHEDrine SULFATE 25 MG/5 ML(5MG/ML) SYRINGE As Ordered ONE ×3 (14:04→14:20)
[2021-11-09] MEDS ORDERED: SUGAMMADEX SODIUM 500 MG/5 ML VIAL (BRIDION) As Ordered ONE (14:15)
[2021-11-09] MEDS ORDERED: ONDANSETRON 4MG 2ML VIAL As Ordered ONE (14:34)
[2021-11-09] MEDS ORDERED: LR 1,000 ML IV SCH (14:35)
[2021-11-09] MEDS ORDERED: METOCLOPRAMIDE INJ 10MG/2ML VIAL (J2765 PER 1) IV PRN (14:35)
[2021-11-09] MEDS ORDERED: ONDANSETRON 4MG 2ML VIAL IV PRN (14:35)
[2021-11-09] MEDS ORDERED: oxyCODONE 5MG TAB PO PRN (14:35)
[2021-11-09] MEDS ORDERED: MEPERIDINE INJ 25 MG/ML VIAL (J2175) IV PRN (14:35)
[2021-11-09] MEDS ORDERED: fentaNYL 100 MCG/2 ML INJECTION IV PRN (14:35)
[2021-11-09] MEDS ORDERED: HYDROMORPHONE HCL 0.5 MG/ 0.5 ML SYRINGE (J1170 PER 1) IV PRN (14:35)
[2021-11-09] MEDS ORDERED: METOCLOPRAMIDE INJ 10MG/2ML VIAL (J2765 PER 1) As Ordered ONE (14:46)
[2021-11-09] MEDS ORDERED: KETOROLAC 60MG 2ML VIAL As Ordered ONE (14:55)
[2021-11-09] MEDS: HEPARIN SOD (PORCINE) 5000UNITS/ML 1ML VIAL/SYRINGE SQ SCH (22:30)
[2021-11-10 01:11] VITALS: BP 138/93
[2021-11-10 05:52] VITALS: BP 115/76
[2021-11-10] MEDS: LevoFLOXacin 750 MG TABLET PO SCH (06:03)
[2021-11-10] MEDS: HEPARIN SOD (PORCINE) 5000UNITS/ML 1ML VIAL/SYRINGE SQ SCH ×3 (06:03→21:24)
[2021-11-10] MEDS: LABETALOL 200 MG TAB PO SCH ×3 (06:04→21:27)
[2021-11-10 06:33] LABS: HEMATOCRIT 40.7 % (42.0-52.0); HEMOGLOBIN 13.4 g/dl (13.5-17.5); MEAN CORPUSCULAR HGB CONC 32.9 g/dl (32.0-36.5); PLATELET COUNT, AUTOMATED 313 10^3/uL (150-450); RED BLOOD COUNT 4.79 10^6/uL (4.30-6.10); WHITE BLOOD COUNT 14.7 10^3/uL (4.0-10.0)
[2021-11-10 07:21] LABS: CALCIUM LEVEL 9.8 MG/DL (8.5-10.1); CREATININE FOR GFR 1.98 MG/DL (0.70-1.30); GLOMERULAR FILTRATION RATE 41.4 (>60); POTASSIUM SERUM 3.8 MEQ/L (3.5-5.1)
[2021-11-10] MEDS: COLCHICINE 0.6 MG TABLET PO SCH (08:32)
[2021-11-10] MEDS: LACTOBACILLUS ACIDOPHILUS CAP (BACID) PO SCH (08:33)
[2021-11-10] MEDS: ASCORBIC ACID 500 MG TAB PO SCH (08:33)
[2021-11-10] MEDS: VALSARTAN 80 MG TAB (DIOVAN) PO SCH (08:35)
[2021-11-10] MEDS: **hydrALAZINE** 50 MG TAB PO SCH ×3 (08:35→21:24)
[2021-11-10] MEDS: SUCROFERRIC OXYHYDROXIDE 500MG CHEW TAB (VELPHORO) PO SCH ×3 (09:11→18:00)
[2021-11-10] MEDS: ACETAMINOPHEN TAB 650MG DOSE (2X325MG) PO PRN (09:11)
[2021-11-10] MEDS: ZINC SULFATE 220 MG CAP PO SCH (09:11)
[2021-11-10 14:07] VITALS: BP 137/92
[2021-11-10] MEDS ORDERED: ONDANSETRON 4MG ORAL DISINTEGRATING TAB PO PRN (19:35)
[2021-11-10 20:46] VITALS: BP 113/68
[2021-11-11 05:38] VITALS: BP 131/67
[2021-11-11] MEDS: LABETALOL 200 MG TAB PO SCH ×3 (05:56→22:21)
[2021-11-11] MEDS: LevoFLOXacin 750 MG TABLET PO SCH (05:56)
[2021-11-11] MEDS: HEPARIN SOD (PORCINE) 5000UNITS/ML 1ML VIAL/SYRINGE SQ SCH ×3 (05:57→21:22)
[2021-11-11 07:51] LABS: HEMATOCRIT 38.6 % (42.0-52.0); HEMOGLOBIN 12.5 g/dl (13.5-17.5); MEAN CORPUSCULAR HGB CONC 32.4 g/dl (32.0-36.5); MEAN CORPUSCULAR VOLUME 86.4 fl (80.0-96.0); PLATELET COUNT, AUTOMATED 258 10^3/uL (150-450); RED BLOOD COUNT 4.47 10^6/uL (4.30-6.10); WHITE BLOOD COUNT 9.8 10^3/uL (4.0-10.0)
[2021-11-11 08:20] LABS: CALCIUM LEVEL 9.7 MG/DL (8.5-10.1); CREATININE FOR GFR 1.77 MG/DL (0.70-1.30); GLOMERULAR FILTRATION RATE 47.1 (>60); POTASSIUM SERUM 3.2 MEQ/L (3.5-5.1)
[2021-11-11 08:29] LABS: ALBUMIN 3.7 GM/DL (3.2-5.2); CALCIUM LEVEL 9.6 MG/DL (8.5-10.1); CREATININE FOR GFR 1.74 MG/DL (0.70-1.30); GLOMERULAR FILTRATION RATE 48.1 (>60); MAGNESIUM LEVEL 1.8 MG/DL (1.8-2.4); PHOSPHORUS LEVEL 4.5 MG/DL (2.5-4.9); POTASSIUM SERUM 3.4 MEQ/L (3.5-5.1); URIC ACID 10.2 MG/DL (3.5-7.2)
[2021-11-11] MEDS ORDERED: POTASSIUM CHLORIDE 10MEQ SR TABLET PO ONE (09:25)
[2021-11-11 09:43] LABS: PHOSPHORUS LEVEL 4.3 MG/DL (2.5-4.9)
[2021-11-11] MEDS: ASCORBIC ACID 500 MG TAB PO SCH (09:44)
[2021-11-11] MEDS: ZINC SULFATE 220 MG CAP PO SCH (09:44)
[2021-11-11] MEDS: LACTOBACILLUS ACIDOPHILUS CAP (BACID) PO SCH (09:44)
[2021-11-11] MEDS: ACETAMINOPHEN TAB 650MG DOSE (2X325MG) PO PRN (09:45)
[2021-11-11] MEDS: **hydrALAZINE** 50 MG TAB PO SCH ×3 (09:45→21:21)
[2021-11-11 13:54] VITALS: BP 150/78
[2021-11-11 21:44] VITALS: BP 120/81
[2021-11-12 06:00] VITALS: BP 122/65
[2021-11-12] MEDS: HEPARIN SOD (PORCINE) 5000UNITS/ML 1ML VIAL/SYRINGE SQ SCH ×3 (06:27→21:30)
[2021-11-12] MEDS: LevoFLOXacin 750 MG TABLET PO SCH (06:27)
[2021-11-12] MEDS: LABETALOL 200 MG TAB PO SCH ×3 (06:27→21:29)
[2021-11-12 06:36] LABS: HEMATOCRIT 38.3 % (42.0-52.0); HEMOGLOBIN 12.5 g/dl (13.5-17.5); MEAN CORPUSCULAR HEMOGLOBIN 27.6 pg (27.0-33.0); MEAN CORPUSCULAR HGB CONC 32.6 g/dl (32.0-36.5); MEAN CORPUSCULAR VOLUME 84.5 fl (80.0-96.0); PLATELET COUNT, AUTOMATED 266 10^3/uL (150-450); RED BLOOD COUNT 4.53 10^6/uL (4.30-6.10); WHITE BLOOD COUNT 9.2 10^3/uL (4.0-10.0)
[2021-11-12 07:06] LABS: CALCIUM LEVEL 9.6 MG/DL (8.5-10.1); CREATININE FOR GFR 1.6 MG/DL (0.70-1.30); GLOMERULAR FILTRATION RATE 52.9 (>60); POTASSIUM SERUM 3.4 MEQ/L (3.5-5.1)
[2021-11-12] MEDS: ASCORBIC ACID 500 MG TAB PO SCH (09:11)
[2021-11-12] MEDS: ZINC SULFATE 220 MG CAP PO SCH (09:12)
[2021-11-12] MEDS: LACTOBACILLUS ACIDOPHILUS CAP (BACID) PO SCH (09:12)
[2021-11-12] MEDS: **hydrALAZINE** 50 MG TAB PO SCH ×3 (09:13→20:19)
[2021-11-12] MEDS ORDERED: POTASSIUM CHLORIDE 10MEQ SR TABLET PO ONE (09:35)
[2021-11-12 14:00] VITALS: BP 141/85
[2021-11-12 21:46] VITALS: BP 143/90
[2021-11-13] MEDS: LevoFLOXacin 750 MG TABLET PO SCH (05:32)
[2021-11-13] MEDS: HEPARIN SOD (PORCINE) 5000UNITS/ML 1ML VIAL/SYRINGE SQ SCH ×3 (05:33→21:36)
[2021-11-13] MEDS: LABETALOL 200 MG TAB PO SCH ×3 (05:33→21:39)
[2021-11-13 06:00] VITALS: BP 126/71
[2021-11-13 08:04] LABS: CALCIUM LEVEL 9.5 MG/DL (8.5-10.1); CREATININE FOR GFR 1.45 MG/DL (0.70-1.30); GLOMERULAR FILTRATION RATE 59.3 (>60); MAGNESIUM LEVEL 1.9 MG/DL (1.8-2.4); PHOSPHORUS LEVEL 4.4 MG/DL (2.5-4.9); POTASSIUM SERUM 3.7 MEQ/L (3.5-5.1)
[2021-11-13] MEDS: ASCORBIC ACID 500 MG TAB PO SCH (08:09)
[2021-11-13] MEDS: ZINC SULFATE 220 MG CAP PO SCH (08:09)
[2021-11-13] MEDS: LACTOBACILLUS ACIDOPHILUS CAP (BACID) PO SCH (08:09)
[2021-11-13] MEDS: **hydrALAZINE** 50 MG TAB PO SCH ×3 (08:10→20:22)
[2021-11-13 14:00] VITALS: BP 135/83
[2021-11-13 22:00] VITALS: BP 126/82
[2021-11-14] MEDS: LevoFLOXacin 750 MG TABLET PO SCH (05:20)
[2021-11-14] MEDS: HEPARIN SOD (PORCINE) 5000UNITS/ML 1ML VIAL/SYRINGE SQ SCH ×3 (05:20→22:00)
[2021-11-14] MEDS: LABETALOL 200 MG TAB PO SCH ×3 (05:21→21:25)
[2021-11-14 06:00] VITALS: BP 128/65
[2021-11-14 06:39] LABS: HEMATOCRIT 36.1 % (42.0-52.0); HEMOGLOBIN 11.9 g/dl (13.5-17.5); MEAN CORPUSCULAR HEMOGLOBIN 28.2 pg (27.0-33.0); MEAN CORPUSCULAR VOLUME 85.5 fl (80.0-96.0); PLATELET COUNT, AUTOMATED 251 10^3/uL (150-450); RED BLOOD COUNT 4.22 10^6/uL (4.30-6.10); WHITE BLOOD COUNT 8.2 10^3/uL (4.0-10.0)
[2021-11-14 07:15] LABS: GLUCOSE, FASTING 87 MG/DL (70-100)
[2021-11-14 07:16] LABS: BLOOD UREA NITROGEN 18 MG/DL (7-18); CALCIUM LEVEL 9.4 MG/DL (8.5-10.1); CARBON DIOXIDE LEVEL 27 mmol/L (20-29); CHLORIDE LEVEL 108 MEQ/L (98-107); GLOMERULAR FILTRATION RATE > 60.0 (>60); POTASSIUM SERUM 3.5 MEQ/L (3.5-5.1); SODIUM LEVEL 142 MEQ/L (136-145)
[2021-11-14] MEDS: LACTOBACILLUS ACIDOPHILUS CAP (BACID) PO SCH (08:50)
[2021-11-14] MEDS: ZINC SULFATE 220 MG CAP PO SCH (08:50)
[2021-11-14] MEDS: ASCORBIC ACID 500 MG TAB PO SCH (08:50)
[2021-11-14] MEDS: **hydrALAZINE** 50 MG TAB PO SCH ×3 (08:51→20:21)
[2021-11-14 14:00] VITALS: BP 151/91
[2021-11-14] MEDS: RAMELTEON 8 MG TAB (ROZEREM) PO PRN (21:25)
[2021-11-14] MEDS: ACETAMINOPHEN TAB 650MG DOSE (2X325MG) PO PRN (21:26)
[2021-11-14 22:00] VITALS: BP 157/96
[2021-11-15] MEDS: LevoFLOXacin 750 MG TABLET PO SCH (05:27)
[2021-11-15] MEDS: ACETAMINOPHEN TAB 650MG DOSE (2X325MG) PO PRN (05:28)
[2021-11-15] MEDS: HEPARIN SOD (PORCINE) 5000UNITS/ML 1ML VIAL/SYRINGE SQ SCH ×3 (05:28→21:56)
[2021-11-15] MEDS: LABETALOL 200 MG TAB PO SCH ×3 (05:28→21:55)
[2021-11-15 06:00] VITALS: BP 123/64
[2021-11-15 06:29] LABS: HEMATOCRIT 35.1 % (42.0-52.0); HEMOGLOBIN 11.6 g/dl (13.5-17.5); MEAN CORPUSCULAR HEMOGLOBIN 28.1 pg (27.0-33.0); PLATELET COUNT, AUTOMATED 271 10^3/uL (150-450); RED BLOOD COUNT 4.13 10^6/uL (4.30-6.10); WHITE BLOOD COUNT 8.4 10^3/uL (4.0-10.0)
[2021-11-15 06:43] LABS: BLOOD UREA NITROGEN 17 MG/DL (7-18); CALCIUM LEVEL 9.5 MG/DL (8.5-10.1); CARBON DIOXIDE LEVEL 26 MEQ/L (21-32); CHLORIDE LEVEL 108 MEQ/L (98-107); CREATININE FOR GFR 1.34 MG/DL (0.70-1.30); GLOMERULAR FILTRATION RATE > 60.0 (>60); GLUCOSE, FASTING 92 MG/DL (70-100); POTASSIUM SERUM 3.4 MEQ/L (3.5-5.1); SODIUM LEVEL 141 MEQ/L (136-145)
[2021-11-15] MEDS: ZINC SULFATE 220 MG CAP PO SCH (09:04)
[2021-11-15] MEDS: ASCORBIC ACID 500 MG TAB PO SCH (09:04)
[2021-11-15] MEDS: LACTOBACILLUS ACIDOPHILUS CAP (BACID) PO SCH (09:04)
[2021-11-15] MEDS: **hydrALAZINE** 50 MG TAB PO SCH ×3 (09:05→21:55)
[2021-11-15 14:00] VITALS: BP 140/85
[2021-11-15] MEDS: RAMELTEON 8 MG TAB (ROZEREM) PO PRN (21:55)
[2021-11-15 22:00] VITALS: BP 132/74
[2021-11-16] MEDS: HEPARIN SOD (PORCINE) 5000UNITS/ML 1ML VIAL/SYRINGE SQ SCH (05:34)
[2021-11-16 06:00] VITALS: BP 136/82
[2021-11-16] MEDS: LABETALOL 200 MG TAB PO SCH (06:19)
[2021-11-16 06:42] LABS: HEMATOCRIT 34.1 % (42.0-52.0); HEMOGLOBIN 11.2 g/dl (13.5-17.5); MEAN CORPUSCULAR HEMOGLOBIN 28.2 pg (27.0-33.0); MEAN CORPUSCULAR HGB CONC 32.8 g/dl (32.0-36.5); MEAN CORPUSCULAR VOLUME 85.9 fl (80.0-96.0); PLATELET COUNT, AUTOMATED 255 10^3/uL (150-450); RED BLOOD COUNT 3.97 10^6/uL (4.30-6.10); WHITE BLOOD COUNT 8.2 10^3/uL (4.0-10.0)
[2021-11-16 07:04] LABS: BLOOD UREA NITROGEN 15 MG/DL (7-18); CARBON DIOXIDE LEVEL 30 MEQ/L (21-32); CHLORIDE LEVEL 109 MEQ/L (98-107); CREATININE FOR GFR 1.21 MG/DL (0.70-1.30); GLOMERULAR FILTRATION RATE > 60.0 (>60); GLUCOSE, FASTING 86 MG/DL (70-100); POTASSIUM SERUM 3.7 MEQ/L (3.5-5.1); SODIUM LEVEL 143 MEQ/L (136-145)
[2021-11-16 07:05] LABS: CALCIUM LEVEL 9.4 MG/DL (8.5-10.1)
[2021-11-16 07:45] VITALS: BP 139/85
[2021-11-16 07:58] VITALS: BP 139/85
[2021-11-16 08:48] VITALS: BP 139/85
[2021-11-16] MEDS: ZINC SULFATE 220 MG CAP PO SCH (08:48)
[2021-11-16] MEDS: **hydrALAZINE** 50 MG TAB PO SCH (08:48)
[2021-11-16] MEDS: ASCORBIC ACID 500 MG TAB PO SCH (08:49)
[2021-11-16] MEDS: LACTOBACILLUS ACIDOPHILUS CAP (BACID) PO SCH (08:49)
[2021-11-16] MEDS ORDERED: ASCO50TA PO (10:19)
[2021-11-16] MEDS ORDERED: RISATAB3 PO (10:19)
[2021-11-16] MEDS ORDERED: ZINC220CA PO (10:19)
[2021-11-16] MEDS ORDERED: BENA25CA4 PO (11:01)
[2021-11-16] MEDS ORDERED: diphenhydrAMINE 25MG CAP PO ONE (11:10)
[2021-11-16] MEDS: ACETAMINOPHEN TAB 650MG DOSE (2X325MG) PO PRN (11:26)
== END 2021-11-16 12:00 | disposition home or self-care (01) | DRG 361 ==
LOC: M SDC 10:04 → M MS5PR 15:19
PROVIDERS: ADMIT Internal Medicine; ATTEND Internal Medicine
PROC: 0KBV0ZZ Excision of Right Foot Muscle, Open Approach (ICD-10-PCS; 2021-10-31)
PROC: F08G5YZ Wound Management Treatment of Integumentary System - Lower Back / Lower Extremity using Other Equipment (ICD-10-PCS; 2021-10-31)
PROC: 0HRKX74 Replacement of Right Lower Leg Skin with Autologous Tissue Substitute, Partial Thickness, External Approach (ICD-10-PCS; principal; 2021-10-31 11:45)
PROC: 0HRKX74 Replacement of Right Lower Leg Skin with Autologous Tissue Substitute, Partial Thickness, External Approach (ICD-10-PCS; 2021-11-09)
PROC: 0KBV0ZZ Excision of Right Foot Muscle, Open Approach (ICD-10-PCS; 2021-11-09)
PROC: 0HBHXZZ Excision of Right Upper Leg Skin, External Approach (ICD-10-PCS; 2021-11-09)
DX: L97.313 Non-pressure chronic ulcer of right ankle with necrosis of muscle (principal); N17.9 Acute kidney failure, unspecified; Z68.41 Body mass index [BMI] 40.0-44.9, adult; B95.1 Streptococcus, group B, as the cause of diseases classified elsewhere; D64.9 Anemia, unspecified; E66.9 Obesity, unspecified; E87.6 Hypokalemia; F12.90 Cannabis use, unspecified, uncomplicated; G47.33 Obstructive sleep apnea (adult) (pediatric); I12.9 Hypertensive chronic kidney disease with stage 1 through stage 4 chronic kidney disease, or unspecified chronic kidney disease; N18.2 Chronic kidney disease, stage 2 (mild); E66.09 Other obesity due to excess calories; M10.9 Gout, unspecified; Z79.899 Other long term (current) drug therapy; Z91.018 Allergy to other foods; B96.5 Pseudomonas (aeruginosa) (mallei) (pseudomallei) as the cause of diseases classified elsewhere; Z91.19 Patient's noncompliance with other medical treatment and regimen

== ENCOUNTER 2022-03-24 10:34 | Emergency (ER) | payer OTHER ==
[~2022-03-24] VITALS: Ht 175.3 cm; Wt 113.3 kg
[~2022-03-24 10:34] MED LIST changes: +ASCO50TA PO; +BENA25CA4 PO; +RISATAB3 PO; +ZINC220CA PO
[2022-03-24] MEDS ORDERED: MITI1CAP (10:46)
[2022-03-24 11:43] LABS: BASO # 0.1 10^3/uL (0.0-0.2); BASO % 0.4 % (0.0-1.0); EOS # 0.3 10^3/uL (0.0-0.5); EOS % 2.5 % (0.0-3.0); HEMATOCRIT 42.3 % (42.0-52.0); HEMOGLOBIN 13.9 g/dl (13.5-17.5); LYMPH # 3.2 10^3/uL (1.5-5.0); LYMPH % 25.9 % (24.0-44.0); MEAN CORPUSCULAR HEMOGLOBIN 27.6 pg (27.0-33.0); MEAN CORPUSCULAR HGB CONC 32.9 g/dl (32.0-36.5); MEAN CORPUSCULAR VOLUME 83.9 fl (80.0-96.0); MONO % 8.4 % (2.0-8.0); NEUTROPHILS # 7.6 10^3/uL (1.5-8.5); NEUTROPHILS % 62.5 % (36.0-66.0); PLATELET COUNT, AUTOMATED 319 10^3/uL (150-450); RED BLOOD COUNT 5.04 10^6/uL (4.30-6.10); WHITE BLOOD COUNT 12.1 10^3/uL (4.0-10.0)
[2022-03-24 12:05] LABS: BLOOD UREA NITROGEN 18 MG/DL (9-23); CARBON DIOXIDE LEVEL 29 MMOL/L (20-31); CHLORIDE LEVEL 100 MMOL/L (98-107); GLOMERULAR FILTRATION RATE > 60.0 (>60); GLUCOSE, FASTING 93 MG/DL (60-100); POTASSIUM SERUM 3.1 MMOL/L (3.5-5.1); SODIUM LEVEL 139 MMOL/L (136-145)
[2022-03-24 12:16] LABS: ERYTHROCYTE SEDIMENTATION RATE 25 mm/hr (0-15)
[2022-03-24] MEDS ORDERED: hydrALAZINE 20MG/ML 1ML VIAL IV STA (13:22)
[2022-03-24 13:38] VITALS: BP 180/110
[2022-03-24 14:20] VITALS: BP 170/84
[2022-03-24] MEDS ORDERED: LISI40TA4 PO (14:27)
[2022-03-24] MEDS ORDERED: CEPH500C PO (14:27)
[2022-03-24] MEDS ORDERED: AMLO10TA PO (14:27)
== END 2022-03-24 14:43 | disposition home or self-care (01) ==
LOC: M ED 10:34
DX: I16.0 Hypertensive urgency (principal); L98.8 Other specified disorders of the skin and subcutaneous tissue; N18.9 Chronic kidney disease, unspecified; G47.33 Obstructive sleep apnea (adult) (pediatric); Z79.899 Other long term (current) drug therapy; Z91.018 Allergy to other foods
CPT/HCPCS: 76882; 80048; 85025; 85652; 86140; 93005; 96374; 99284; J0360

== ENCOUNTER 2022-04-21 14:25 | Emergency (ER) | payer OTHER ==
[~2022-04-21] VITALS: Ht 175.3 cm; Wt 105.2 kg
[~2022-04-21 14:25] MED LIST changes: +AMLO10TA PO; +CEPH500C PO; +MITI1CAP
[2022-04-21] MEDS ORDERED: **hydrALAZINE** 50 MG TAB PO ONE (17:30)
[2022-04-21 18:05] LABS: HEMATOCRIT 43.3 % (42.0-52.0); MEAN CORPUSCULAR HEMOGLOBIN 27.3 pg (27.0-33.0); MEAN CORPUSCULAR HGB CONC 32.3 g/dl (32.0-36.5); MEAN CORPUSCULAR VOLUME 84.6 fl (80.0-96.0); PLATELET COUNT, AUTOMATED 285 10^3/uL (150-450); RED BLOOD COUNT 5.12 10^6/uL (4.30-6.10); WHITE BLOOD COUNT 9.7 10^3/uL (4.0-10.0)
[2022-04-21 18:09] VITALS: BP 167/114
[2022-04-21 18:26] LABS: BILIRUBIN,DIRECT 0.2 MG/DL (<0.4)
[2022-04-21] MEDS ORDERED: PERCOCET 5MG/325MG TAB PO ONE (18:30)
[2022-04-21 18:31] LABS: ALBUMIN 3.8 G/DL (3.2-5.2); ALKALINE PHOSPHATASE 87 U/L (46-116); ALT/SGPT 86 U/L (7.0-40); AST/SGOT 55 U/L (<34); BILIRUBIN,TOTAL 0.7 MG/DL (0.3-1.2); BLOOD UREA NITROGEN 20 MG/DL (9-23); CALCIUM LEVEL 9.1 MG/DL (8.5-10.1); CARBON DIOXIDE LEVEL 31 MMOL/L (20-31); CHLORIDE LEVEL 101 MMOL/L (98-107); CREATININE FOR GFR 1.31 MG/DL (0.70-1.30); GLOMERULAR FILTRATION RATE > 60.0 (>60); GLUCOSE, FASTING 87 MG/DL (60-100); SODIUM LEVEL 142 MMOL/L (136-145)
[2022-04-21 18:37] LABS: BASOPHILS 1 % (0-1); EOSINOPHILS 2 % (0-3); LYMPHOCYTES 28 % (16-44); MONOCYTES 4 % (0-5); NEUTROPHILS 65 % (28-66)
[2022-04-21 18:38] LABS: PLATELET ESTIMATE NORMAL (NORMAL)
[2022-04-21 18:46] VITALS: BP 178/98
[2022-04-21 18:48] LABS: ERYTHROCYTE SEDIMENTATION RATE 92 mm/hr (0-15)
[2022-04-21] MEDS ORDERED: lisinopriL 40MG TAB PO ONE (18:55)
[2022-04-21] MEDS ORDERED: POTASSIUM CHLORIDE 10MEQ SR TABLET PO ONE (19:05)
[2022-04-21 19:37] LABS: CPK CREATINE PHOSPHOKINASE 1692 U/L (46-171)
[2022-04-21] MEDS ORDERED: NS 1,000 ML IV ONE (20:35)
[2022-04-21] MEDS ORDERED: LISI40TA4 PO (20:48)
[2022-04-21] MEDS ORDERED: AMLO1TAB25 PO (20:49)
[2022-04-21] MEDS ORDERED: HYDR50TA PO (20:50)
== END 2022-04-21 22:07 | disposition home or self-care (01) ==
LOC: M ED 17:05
DX: M62.82 Rhabdomyolysis (principal); M25.422 Effusion, left elbow; M25.562 Pain in left knee; I10 Essential (primary) hypertension; R94.4 Abnormal results of kidney function studies; Z53.9 Procedure and treatment not carried out, unspecified reason; E78.5 Hyperlipidemia, unspecified; F32.9 Major depressive disorder, single episode, unspecified; Z79.899 Other long term (current) drug therapy

== ENCOUNTER → 2022-08-22 | Outpatient (CLI) | payer OTHER | LOC: M PLAIMG 11:44 | PROVIDERS: ATTEND Student in an Organized Health Care Education/Training Program | DX: S91.001S Unspecified open wound, right ankle, sequela (principal); M79.89 Other specified soft tissue disorders ==

== ENCOUNTER 2022-10-12 16:47 | Emergency (ER) | payer OTHER ==
[~2022-10-12] VITALS: Ht 175.3 cm; Wt 116.6 kg
[~2022-10-12 16:47] MED LIST changes: -K-TA10TA2 PO; +POTA-165 PO
[2022-10-12 20:16] VITALS: BP 165/98; TEMP 96.7; O2SAT 100
== END 2022-10-12 20:18 | disposition home or self-care (01) ==
LOC: M ED 16:47
DX: M25.562 Pain in left knee (principal); I10 Essential (primary) hypertension; Z79.899 Other long term (current) drug therapy; Z91.018 Allergy to other foods

== ENCOUNTER → 2022-11-21 | Outpatient (REF) | payer OTHER | LOC: M LAB REF 16:09 | PROVIDERS: ATTEND Plastic Surgery Surgery of the Hand | DX: S91.001A Unspecified open wound, right ankle, initial encounter (principal); Y93.9 Activity, unspecified; Y92.9 Unspecified place or not applicable ==

== ENCOUNTER → 2023-01-08 | Outpatient (CLI) | payer OTHER ==
[2023-01-08 16:24] LABS: HEMATOCRIT 40.9 % (42.0-52.0); HEMOGLOBIN 13.4 g/dl (13.5-17.5); MEAN CORPUSCULAR HEMOGLOBIN 28.7 pg (27.0-33.0); MEAN CORPUSCULAR HGB CONC 32.8 g/dl (32.0-36.5); MEAN CORPUSCULAR VOLUME 87.6 fl (80.0-96.0); PLATELET COUNT, AUTOMATED 265 10^3/uL (150-450); RED BLOOD COUNT 4.67 10^6/uL (4.30-6.10); WHITE BLOOD COUNT 7.3 10^3/uL (4.0-10.0)
[2023-01-08 16:50] LABS: URIC ACID 9.3 MG/DL (3.7-9.2)
[2023-01-08 16:53] LABS: CALCIUM LEVEL 9.3 MG/DL (8.5-10.1); CREATININE FOR GFR 1.64 MG/DL (0.70-1.30); GLOMERULAR FILTRATION RATE 51.1 (>60); POTASSIUM SERUM 3.3 MMOL/L (3.5-5.1)
== END ==
LOC: M PLALAB 11:39
PROVIDERS: ATTEND Student in an Organized Health Care Education/Training Program
DX: Z01.818 Encounter for other preprocedural examination (principal); M25.561 Pain in right knee

== ENCOUNTER → 2023-01-30 | Outpatient (CLI) | payer OTHER ==
[~2023-01-30] MED LIST changes: +ERGO500029 PO; -MITI1CAP
== END ==
LOC: M RAD 07:33
PROVIDERS: ATTEND Student in an Organized Health Care Education/Training Program
DX: N18.31 Chronic kidney disease, stage 3a (principal); N28.1 Cyst of kidney, acquired

== ENCOUNTER 2023-02-07 06:11 | Observation (INO) | payer OTHER ==
[~2023-02-07] VITALS: Ht 175.3 cm; Wt 111.7 kg
[~2023-02-07 06:11] MED LIST changes: +ceFAZolin SOD 2 GM in IV 1 EA IV ONE
[2023-02-07] MEDS ORDERED: LR 1,000 ML IV SCH ×2 (06:45→09:25)
[2023-02-07] MEDS ORDERED: LIDOCAINE 2% 100MG/5ML SDV (FOR ANES.) As Ordered ONE (06:59)
[2023-02-07] MEDS ORDERED: ONDANSETRON 4MG 2ML VIAL As Ordered ONE (06:59)
[2023-02-07] MEDS ORDERED: propofoL 200 MG/20 ML VIAL As Ordered ONE ×2 (07:00→08:01)
[2023-02-07] MEDS ORDERED: MIDAZOLAM INJ 2MG/2ML VIAL As Ordered ONE (07:03)
[2023-02-07] MEDS ORDERED: fentaNYL 100 MCG/2 ML INJECTION As Ordered ONE ×2 (07:03→08:26)
[2023-02-07] MEDS ORDERED: GENTAMICIN SULF 80MG/2ML VIAL As Ordered ONE (08:03)
[2023-02-07] MEDS ORDERED: ACETAMINOPHEN 1000MG 100ML IV BAG As Ordered ONE (08:05)
[2023-02-07] MEDS ORDERED: MEPERIDINE 25 MG/ML 1ML VIAL IV PRN (09:25)
[2023-02-07] MEDS ORDERED: fentaNYL 100 MCG/2 ML INJECTION IV PRN (09:25)
[2023-02-07] MEDS ORDERED: ONDANSETRON 4MG 2ML VIAL IV PRN (09:25)
[2023-02-07] MEDS ORDERED: HYDROMORPHONE HCL 0.5 MG/ 0.5 ML SYRINGE IV PRN (10:00)
[2023-02-07] MEDS ORDERED: oxyCODONE 5MG TAB PO PRN (10:00)
[2023-02-07 11:34] LABS: BASO % 0.2 % (0.0-1.0); EOS # 0.1 10^3/uL (0.0-0.5); EOS % 0.9 % (0.0-3.0); HEMATOCRIT 38.1 % (42.0-52.0); HEMOGLOBIN 12.5 g/dl (13.5-17.5); LYMPH # 1.3 10^3/uL (1.5-5.0); LYMPH % 15.5 % (24.0-44.0); MEAN CORPUSCULAR HEMOGLOBIN 28.7 pg (27.0-33.0); MEAN CORPUSCULAR HGB CONC 32.8 g/dl (32.0-36.5); MEAN CORPUSCULAR VOLUME 87.4 fl (80.0-96.0); MONO # 0.2 10^3/uL (0.0-0.8); MONO % 2.4 % (2.0-8.0); NEUTROPHILS # 6.8 10^3/uL (1.5-8.5); NEUTROPHILS % 80.8 % (36.0-66.0); PLATELET COUNT, AUTOMATED 275 10^3/uL (150-450); RED BLOOD COUNT 4.36 10^6/uL (4.30-6.10); WHITE BLOOD COUNT 8.5 10^3/uL (4.0-10.0)
[2023-02-07 11:42] LABS: BLOOD UREA NITROGEN 18 MG/DL (9-23); CALCIUM LEVEL 8.6 MG/DL (8.5-10.1); CARBON DIOXIDE LEVEL 31 MMOL/L (20-31); CHLORIDE LEVEL 105 MMOL/L (98-107); CREATININE FOR GFR 1.39 MG/DL (0.70-1.30); GLOMERULAR FILTRATION RATE > 60.0 (>60); GLUCOSE, FASTING 92 MG/DL (60-100); MAGNESIUM LEVEL 1.7 MG/DL (1.8-2.4); POTASSIUM SERUM 3.5 MMOL/L (3.5-5.1); SODIUM LEVEL 142 MMOL/L (136-145)
[2023-02-07] MEDS ORDERED: MAG SULF 1GM/100ML (MAG RUN) 1 GM in IV 1 EA IV SCH (11:45)
[2023-02-07] MEDS ORDERED: MOM 30ML SUSPENSION UDC PO PRN (11:55)
[2023-02-07] MEDS ORDERED: MAALOX 30 ML SUSP *UDC PO PRN (11:55)
[2023-02-07] MEDS ORDERED: ACETAMINOPHEN TAB 650MG DOSE (2X325MG) PO PRN (11:55)
[2023-02-07] MEDS ORDERED: MAGNESIUM SULFATE 1GM/100ML D5W BAG (10MG/ML) As Ordered ONE (12:11)
[2023-02-07] MEDS ORDERED: POTASSIUM CHLORIDE 10MEQ SR TABLET PO ONE (13:00)
[2023-02-07] MEDS ORDERED: MAG SULF 1GM/100ML (MAG RUN) 1 GM in IV 1 EA IV ONE (13:00)
[2023-02-07] MEDS ORDERED: METOPROLOL SUCC *XL* 25MG TAB (TopROL *XL*) PO ONE (13:00)
[2023-02-07 13:25] VITALS: BP 151/100; TEMP 97.7; O2SAT 98
[2023-02-07] MEDS ORDERED: COLC1CAP PO (13:27)
[2023-02-07] MEDS ORDERED: METO1TAB32 PO (13:27)
[2023-02-07] MEDS ORDERED: HOME MED LIST COMPLETE! XX SCH (13:35)
[2023-02-07 14:00] VITALS: BP 150/99; TEMP 96.6; O2SAT 97
[2023-02-07] MEDS: HEPARIN SOD (PORCINE) 5000UNITS/ML 1ML VIAL/SYRINGE SC SCH ×2 (14:00→21:26)
[2023-02-07 15:00] VITALS: BP 153/99; TEMP 97.9; O2SAT 98
[2023-02-07 16:00] VITALS: BP 143/95; TEMP 97.6; O2SAT 98
[2023-02-07 17:00] VITALS: BP 145/88; TEMP 98; O2SAT 96
[2023-02-07] MEDS: **hydrALAZINE** 50 MG TAB PO SCH ×2 (17:03→21:27)
[2023-02-07 20:17] VITALS: BP 136/71; TEMP 97.9; O2SAT 94
[2023-02-07] MEDS: DOCUSATE SODIUM 100MG CAPSULE PO SCH (21:26)
[2023-02-07] MEDS: PERCOCET 5MG/325MG TAB PO PRN (21:28)
[2023-02-08 01:36] VITALS: BP 134/76; TEMP 97.8; O2SAT 95
[2023-02-08] MEDS: HEPARIN SOD (PORCINE) 5000UNITS/ML 1ML VIAL/SYRINGE SC SCH ×3 (05:48→21:08)
[2023-02-08 06:13] VITALS: BP 166/88; TEMP 97.6; O2SAT 94
[2023-02-08] MEDS: COLCHICINE 0.6 MG TABLET PO SCH (07:41)
[2023-02-08] MEDS: **hydrALAZINE** 50 MG TAB PO SCH (07:42)
[2023-02-08] MEDS: DOCUSATE SODIUM 100MG CAPSULE PO SCH ×2 (07:42→21:09)
[2023-02-08] MEDS: METOPROLOL SUCC *XL* 25MG TAB (TopROL *XL*) PO SCH (07:42)
[2023-02-08] MEDS: PERCOCET 5MG/325MG TAB PO PRN ×2 (10:00→21:08)
[2023-02-08] MEDS: **hydrALAZINE HCL** 25 MG TAB PO SCH ×2 (15:35→21:09)
[2023-02-08] MEDS ORDERED: POTASSIUM CHLORIDE 10MEQ SR TABLET PO ONE (18:00)
[2023-02-08 20:57] VITALS: BP 168/108; TEMP 97.8; O2SAT 96
[2023-02-08 21:10] VITALS: BP 148/88
[2023-02-09] MEDS: HEPARIN SOD (PORCINE) 5000UNITS/ML 1ML VIAL/SYRINGE SC SCH (05:48)
[2023-02-09 06:06] VITALS: BP 160/110; TEMP 97.9; O2SAT 96
[2023-02-09] MEDS: **hydrALAZINE HCL** 25 MG TAB PO SCH (09:33)
[2023-02-09 09:34] VITALS: BP 139/86
[2023-02-09] MEDS: METOPROLOL SUCC *XL* 25MG TAB (TopROL *XL*) PO SCH (09:34)
[2023-02-09] MEDS: COLCHICINE 0.6 MG TABLET PO SCH (09:34)
[2023-02-09] MEDS: DOCUSATE SODIUM 100MG CAPSULE PO SCH (09:34)
[2023-02-09] MEDS ORDERED: OXYC1TAB23 PO (09:51)
[2023-02-09] MEDS ORDERED: COLA100C5 PO (09:51)
[2023-02-09] MEDS ORDERED: HYDR-3910 PO (09:51)
[2023-02-09 10:56] LABS: BLOOD UREA NITROGEN 16 MG/DL (7-21); CHLORIDE LEVEL 104 MEQ/L (98-107); CREATININE FOR GFR 1.2 MG/DL (0.7-1.5); GLOMERULAR FILTRATION RATE > 60.0 (>60); GLUCOSE, FASTING 97 MG/DL (70-99); POTASSIUM SERUM 3.5 MEQ/L (3.6-5.0); SODIUM LEVEL 142 MEQ/L (134-153)
[2023-02-09 10:57] LABS: CALCIUM LEVEL 9.1 MG/DL (8.4-10.2); CARBON DIOXIDE LEVEL 29 MEQ/L (22-30)
== END 2023-02-09 12:50 | disposition home or self-care (01) ==
LOC: M SDC 06:11 → INTOOBSV 10:50 → M RR INP 10:50 → M MS5PR 13:15
PROVIDERS: ADMIT Internal Medicine; ATTEND Internal Medicine
DX: L90.5 Scar conditions and fibrosis of skin (principal); L91.0 Hypertrophic scar; N18.31 Chronic kidney disease, stage 3a; I12.9 Hypertensive chronic kidney disease with stage 1 through stage 4 chronic kidney disease, or unspecified chronic kidney disease; E66.9 Obesity, unspecified; E88.9 Metabolic disorder, unspecified; M10.9 Gout, unspecified; M11.80 Other specified crystal arthropathies, unspecified site; E87.8 Other disorders of electrolyte and fluid balance, not elsewhere classified; Z79.899 Other long term (current) drug therapy; Z91.018 Allergy to other foods; F12.10 Cannabis abuse, uncomplicated; F32.9 Major depressive disorder, single episode, unspecified; Z87.891 Personal history of nicotine dependence
CPT/HCPCS: 11404; 12032; 36415; 74176; 80048; 83735; 85025; 87070; 87075; 87077; 87186; 87205; 87635; 88302; 97161; 97530; C9290; J0131; J0665; J0690; J1100; J1580; J2250; J2405; J3010; J3475

== ENCOUNTER 2023-03-27 13:55 | Emergency (ER) | payer OTHER ==
[~2023-03-27] VITALS: Ht 175.3 cm; Wt 110.0 kg
[~2023-03-27 13:55] MED LIST changes: +COLA100C5 PO; +COLC1CAP PO; +HYDR-3910 PO; +METO1TAB32 PO; +OXYC1TAB23 PO; -ceFAZolin SOD 2 GM in IV 1 EA IV ONE
[2023-03-27 14:02] VITALS: BP 136/80; TEMP 97.7; O2SAT 99
[2023-03-27 15:34] LABS: MEAN CORPUSCULAR HEMOGLOBIN 28.6 pg (27.0-33.0); MEAN CORPUSCULAR HGB CONC 33.3 g/dl (32.0-36.5); MEAN CORPUSCULAR VOLUME 85.9 fl (80.0-96.0); PLATELET COUNT, AUTOMATED 277 10^3/uL (150-450); RED BLOOD COUNT 4.54 10^6/uL (4.30-6.10); WHITE BLOOD COUNT 10.7 10^3/uL (4.0-10.0)
[2023-03-27 15:43] LABS: ERYTHROCYTE SEDIMENTATION RATE 64 mm/hr (0-15)
[2023-03-27 15:52] LABS: BASOPHILS 1 % (0-1); LYMPHOCYTES 18 % (16-44); MONOCYTES 5 % (0-5); NEUTROPHILS 76 % (28-66); PLATELET ESTIMATE NORMAL (NORMAL)
[2023-03-27] MEDS ORDERED: POTASSIUM CHLORIDE 10MEQ SR TABLET PO ONE (17:50)
[2023-03-27] MEDS ORDERED: AMOX875T2 PO (18:01)
== END 2023-03-27 18:06 | disposition home or self-care (01) ==
LOC: M ED 13:55
DX: Z53.29 Procedure and treatment not carried out because of patient's decision for other reasons (principal); M25.571 Pain in right ankle and joints of right foot; W19.XXXA Unspecified fall, initial encounter; Y92.9 Unspecified place or not applicable; Y93.9 Activity, unspecified; I10 Essential (primary) hypertension; F17.210 Nicotine dependence, cigarettes, uncomplicated; Z91.018 Allergy to other foods; Z79.899 Other long term (current) drug therapy; Z79.1 Long term (current) use of non-steroidal anti-inflammatories (NSAID)

== ENCOUNTER → 2023-03-28 | Outpatient (REF) | payer OTHER ==
[~2023-03-28] MED LIST changes: +AMOX875T2 PO; +MUPI2OI TOP
== END ==
LOC: M LAB REF 16:22
PROVIDERS: ATTEND Physician Assistant
DX: Z48.817 Encounter for surgical aftercare following surgery on the skin and subcutaneous tissue (principal)

== ENCOUNTER 2023-04-01 15:32 | Observation (INO) | payer OTHER ==
[~2023-04-01] VITALS: Ht 175.3 cm; Wt 112.0 kg
[~2023-04-01 15:32] MED LIST changes: -MUPI2OI TOP
[2023-04-01] MEDS ORDERED: ACETAMINOPHEN 500 MG TAB PO PRN (17:05)
[2023-04-01 17:47] LABS: HEMATOCRIT 35.9 % (42.0-52.0); HEMOGLOBIN 11.9 g/dl (13.5-17.5); MEAN CORPUSCULAR HEMOGLOBIN 28.5 pg (27.0-33.0); MEAN CORPUSCULAR HGB CONC 33.1 g/dl (32.0-36.5); MEAN CORPUSCULAR VOLUME 85.9 fl (80.0-96.0); PLATELET COUNT, AUTOMATED 355 10^3/uL (150-450); RED BLOOD COUNT 4.18 10^6/uL (4.30-6.10); WHITE BLOOD COUNT 7.2 10^3/uL (4.0-10.0)
[2023-04-01] MEDS ORDERED: MUPI2OI TOP (18:39)
[2023-04-01] MEDS ORDERED: AMOX875T2 PO (18:39)
[2023-04-01] MEDS ORDERED: HOME MED LIST COMPLETE! XX SCH (18:45)
[2023-04-01 19:46] LABS: PROCALCITONIN <0.04 ng/ml
[2023-04-01 19:51] LABS: ALBUMIN 3.3 G/DL (3.2-5.2); ALKALINE PHOSPHATASE 58 U/L (46-116); ALT/SGPT 39 U/L (7.0-40); AST/SGOT 29 U/L (<34); BILIRUBIN,TOTAL 0.2 MG/DL (0.3-1.2); BLOOD UREA NITROGEN 17 MG/DL (9-23); CALCIUM LEVEL 8.7 MG/DL (8.5-10.1); CARBON DIOXIDE LEVEL 30 MMOL/L (20-31); CHLORIDE LEVEL 101 MMOL/L (98-107); CREATININE FOR GFR 1.12 MG/DL (0.70-1.30); GLOMERULAR FILTRATION RATE > 60.0 (>60); GLUCOSE, FASTING 82 MG/DL (60-100); POTASSIUM SERUM 3.2 MMOL/L (3.5-5.1); SODIUM LEVEL 141 MMOL/L (136-145); TOTAL PROTEIN 6.8 G/DL (5.7-8.2)
[2023-04-01] MEDS: KETOROLAC 30 MG/ML 1ML VIAL IV PRN (20:04)
[2023-04-01] MEDS ORDERED: VANCOMYCIN HCL 1,000 MG, VIAL MATE ADAPTER 1 EACH in D5W 250 ML IV ONE ×2 (21:00→22:00)
[2023-04-02] MEDS: VANCOMYCIN HCL 1,000 MG, VIAL MATE ADAPTER 1 EACH in D5W 250 ML IV SCH ×3 (05:58→22:26)
[2023-04-02 07:28] LABS: HEMOGLOBIN 12.7 g/dl (13.5-17.5); MEAN CORPUSCULAR HEMOGLOBIN 28.5 pg (27.0-33.0); MEAN CORPUSCULAR HGB CONC 33.4 g/dl (32.0-36.5); MEAN CORPUSCULAR VOLUME 85.2 fl (80.0-96.0); PLATELET COUNT, AUTOMATED 325 10^3/uL (150-450); RED BLOOD COUNT 4.46 10^6/uL (4.30-6.10); WHITE BLOOD COUNT 7.9 10^3/uL (4.0-10.0)
[2023-04-02 07:58] LABS: BLOOD UREA NITROGEN 11 MG/DL (9-23); CALCIUM LEVEL 8.9 MG/DL (8.5-10.1); CARBON DIOXIDE LEVEL 30 MMOL/L (20-31); CHLORIDE LEVEL 104 MMOL/L (98-107); CREATININE FOR GFR 1.05 MG/DL (0.70-1.30); GLOMERULAR FILTRATION RATE > 60.0 (>60); GLUCOSE, FASTING 89 MG/DL (60-100); POTASSIUM SERUM 3.2 MMOL/L (3.5-5.1); SODIUM LEVEL 141 MMOL/L (136-145)
[2023-04-02] MEDS ORDERED: VITAMIN D 50,000 UNITS CAPSULE (ERGOCALCIFEROL 1.25MG) PO SCH (09:00)
[2023-04-02] MEDS ORDERED: POTASSIUM CHLORIDE 10MEQ SR TABLET PO ONE (09:05)
[2023-04-02] MEDS: ENOXAPARIN 40MG/0.4ML SYRINGE (J1650 PER 10MG) SC SCH (09:07)
[2023-04-02] MEDS: COLCHICINE 0.6 MG TABLET PO SCH ×2 (13:00→21:35)
[2023-04-02 13:39] VITALS: BP 162/100; TEMP 97.9; O2SAT 98
[2023-04-02] MEDS: **hydrALAZINE** 50 MG TAB PO SCH ×2 (16:21→21:35)
[2023-04-02 18:29] VITALS: BP 146/87
[2023-04-02] MEDS: KETOROLAC 30 MG/ML 1ML VIAL IV PRN (21:35)
[2023-04-02 21:40] VITALS: BP 160/80; TEMP 98.6; O2SAT 94
[2023-04-03 05:31] VITALS: BP 144/92; TEMP 98.4; O2SAT 99
[2023-04-03] MEDS: VANCOMYCIN HCL 1,000 MG, VIAL MATE ADAPTER 1 EACH in D5W 250 ML IV SCH (05:57)
[2023-04-03] MEDS: COLCHICINE 0.6 MG TABLET PO SCH (08:49)
[2023-04-03] MEDS: ENOXAPARIN 40MG/0.4ML SYRINGE (J1650 PER 10MG) SC SCH (08:50)
[2023-04-03 08:52] VITALS: BP 145/86
[2023-04-03] MEDS: **hydrALAZINE** 50 MG TAB PO SCH (08:52)
[2023-04-03] MEDS ORDERED: POTASSIUM CHLORIDE 10MEQ SR TABLET PO SCH (09:00)
[2023-04-03] MEDS ORDERED: BALMEX CREAM 60GM EXT SCH (09:00)
[2023-04-03] MEDS ORDERED: BALMOINT60 EXT (10:09)
== END 2023-04-03 11:02 | disposition home or self-care (01) ==
LOC: M ED 15:32 → M ED INP 15:33 → ENRESERV 04-02 12:54 → M MSPAV 04-02 13:37
PROVIDERS: ADMIT Internal Medicine; ATTEND Student in an Organized Health Care Education/Training Program
DX: L97.319 Non-pressure chronic ulcer of right ankle with unspecified severity (principal); E87.6 Hypokalemia; I10 Essential (primary) hypertension; E88.810 Metabolic syndrome; G47.33 Obstructive sleep apnea (adult) (pediatric); M11.20 Other chondrocalcinosis, unspecified site; Z79.899 Other long term (current) drug therapy; Z79.2 Long term (current) use of antibiotics; Z91.018 Allergy to other foods
CPT/HCPCS: 36415; 76882; 80048; 80053; 80202; 83605; 84145; 85027; 86140; 87040; 87635; 87641; 96365; 96366; 96372; 96375; 96376; 99285; J1650; J1885; J3370

== ENCOUNTER 2023-04-03 11:08 | Outpatient (CLI) | payer OTHER ==
[~2023-04-03] VITALS: Ht 176.5 cm; Wt 112.0 kg
[~2023-04-03 11:08] MED LIST changes: +BALMOINT60 EXT; +MUPI2OI TOP
[2023-04-03 11:40] VITALS: BP 161/89; O2SAT 98
[2023-04-03] MEDS ORDERED: DALBAVANCIN 1,500 MG in D5W 250 ML IV ONE (12:00)
[2023-04-03 13:35] VITALS: BP 178/88; O2SAT 100
== END 2023-04-03 13:35 | disposition home or self-care (01) ==
LOC: M INFU 11:08 → EEVIPCON 11:08 → M INFU 13:35
PROVIDERS: ATTEND Student in an Organized Health Care Education/Training Program
DX: L03.115 Cellulitis of right lower limb (principal); Z91.018 Allergy to other foods
CPT/HCPCS: 96365; J0875

== ENCOUNTER → 2023-05-30 | Outpatient (CLI) | payer OTHER ==
[~2023-05-30] MED LIST changes: -HYDR-3911 PO; -HYDR50TA PO; +HYDR50TA46 PO; +HYDR50TA47 PO
== END ==
LOC: M PLAIMG 14:17
PROVIDERS: ATTEND Student in an Organized Health Care Education/Training Program
DX: R94.31 Abnormal electrocardiogram [ECG] [EKG] (principal)

== ENCOUNTER 2023-07-11 12:05 | Emergency (ER) | payer OTHER ==
[~2023-07-11] VITALS: Ht 175.3 cm; Wt 109.4 kg
[~2023-07-11 12:05] MED LIST changes: -HYDR-3910 PO; +HYDR25TA87 PO
[2023-07-11] MEDS: IBUPROFEN 800 MG TAB PO ONE (13:51)
[2023-07-11 13:57] LABS: BASO # 0.1 10^3/uL (0.0-0.2); BASO % 0.6 % (0.0-1.0); EOS # 0.2 10^3/uL (0.0-0.5); EOS % 2.8 % (0.0-3.0); HEMATOCRIT 41.3 % (42.0-52.0); HEMOGLOBIN 13.8 g/dl (13.5-17.5); LYMPH % 22.8 % (24.0-44.0); MEAN CORPUSCULAR HEMOGLOBIN 28.5 pg (27.0-33.0); MEAN CORPUSCULAR HGB CONC 33.4 g/dl (32.0-36.5); MEAN CORPUSCULAR VOLUME 85.3 fl (80.0-96.0); MONO # 0.7 10^3/uL (0.0-0.8); MONO % 8.6 % (2.0-8.0); NEUTROPHILS # 5.6 10^3/uL (1.5-8.5); NEUTROPHILS % 64.8 % (36.0-66.0); PLATELET COUNT, AUTOMATED 299 10^3/uL (150-450); RED BLOOD COUNT 4.84 10^6/uL (4.30-6.10); WHITE BLOOD COUNT 8.6 10^3/uL (4.0-10.0)
[2023-07-11 14:24] LABS: BLOOD UREA NITROGEN 15 MG/DL (9-23); CALCIUM LEVEL 9.3 MG/DL (8.5-10.1); CARBON DIOXIDE LEVEL 34 MMOL/L (20-31); CHLORIDE LEVEL 101 MMOL/L (98-107); CK-MB VALUE MASS 8.6 NG/ML (<3.6); CREATININE FOR GFR 1.18 MG/DL (0.70-1.30); GLOMERULAR FILTRATION RATE > 60.0 (>60); GLUCOSE, FASTING 85 MG/DL (60-100); POTASSIUM SERUM 3.2 MMOL/L (3.5-5.1); SODIUM LEVEL 142 MMOL/L (136-145)
[2023-07-11 14:27] LABS: RSV AMPLIFICATION NEGATIVE (NEGATIVE)
[2023-07-11 14:36] LABS: CPK CREATINE PHOSPHOKINASE 1245 U/L (46-171); MB/CK RELATIVE INDEX 0.69 (< OR =4)
[2023-07-11] MEDS: NS 1,000 ML IV ONE (15:05)
[2023-07-11 15:36] LABS: CK-MB VALUE MASS 8.1 NG/ML (<3.6)
[2023-07-11] MEDS: POTASSIUM CHLORIDE 10MEQ SR TABLET PO ONE (15:38)
[2023-07-11 15:39] LABS: MB/CK RELATIVE INDEX 0.62 (< OR =4)
[2023-07-11] MEDS: KCL 10MEQ/100ML SWI (KRUN) 10 MEQ in IV 1 EA IV ONE (15:39)
[2023-07-11 16:58] VITALS: BP 142/88; TEMP 98.6; O2SAT 100
== END 2023-07-11 17:34 | disposition home or self-care (01) ==
LOC: M ED 12:05
DX: R07.9 Chest pain, unspecified (principal); I10 Essential (primary) hypertension; G47.33 Obstructive sleep apnea (adult) (pediatric); M10.9 Gout, unspecified; F31.9 Bipolar disorder, unspecified; F12.90 Cannabis use, unspecified, uncomplicated; Z91.018 Allergy to other foods; Z79.899 Other long term (current) drug therapy

== ENCOUNTER 2024-01-01 12:05 | Emergency (ER) | payer OTHER ==
[~2024-01-01] VITALS: Ht 175.3 cm; Wt 116.0 kg
[2024-01-01 16:46] LABS: BASO % 0.3 % (0.0-1.0); EOS # 0.4 10^3/uL (0.0-0.5); EOS % 3.6 % (0.0-3.0); HEMATOCRIT 40.2 % (42.0-52.0); HEMOGLOBIN 13.3 g/dl (13.5-17.5); LYMPH # 2.6 10^3/uL (1.5-5.0); LYMPH % 21.8 % (24.0-44.0); MEAN CORPUSCULAR HEMOGLOBIN 28.7 pg (27.0-33.0); MEAN CORPUSCULAR HGB CONC 33.1 g/dl (32.0-36.5); MEAN CORPUSCULAR VOLUME 86.8 fl (80.0-96.0); MONO # 0.8 10^3/uL (0.0-0.8); MONO % 7.1 % (2.0-8.0); NEUTROPHILS # 7.9 10^3/uL (1.5-8.5); NEUTROPHILS % 66.8 % (36.0-66.0); PLATELET COUNT, AUTOMATED 276 10^3/uL (150-450); RED BLOOD COUNT 4.63 10^6/uL (4.30-6.10); WHITE BLOOD COUNT 11.8 10^3/uL (4.0-10.0)
[2024-01-01 16:51] LABS: ERYTHROCYTE SEDIMENTATION RATE 29 mm/hr (0-15)
[2024-01-01 16:59] LABS: URIC ACID 7.5 MG/DL (3.7-9.2)
[2024-01-01 17:02] LABS: BLOOD UREA NITROGEN 18 MG/DL (9-23); CALCIUM LEVEL 8.8 MG/DL (8.5-10.1); CARBON DIOXIDE LEVEL 31 MMOL/L (20-31); CHLORIDE LEVEL 107 MMOL/L (98-107); CREATININE FOR GFR 1.19 MG/DL (0.70-1.30); GLOMERULAR FILTRATION RATE > 60.0 (>60); GLUCOSE, FASTING 79 MG/DL (60-100); POTASSIUM SERUM 3.4 MMOL/L (3.5-5.1); SODIUM LEVEL 142 MMOL/L (136-145)
[2024-01-01] MEDS ORDERED: IBUP-1022 PO (17:24)
[2024-01-01 17:33] VITALS: BP 190/112; TEMP 98.9; O2SAT 98
[2024-01-01] MEDS: IBUPROFEN 600MG TAB PO ONE (17:49)
== END 2024-01-01 18:05 | disposition home or self-care (01) ==
LOC: M ED 12:05
DX: S80.11XA Contusion of right lower leg, initial encounter (principal); M71.21 Synovial cyst of popliteal space [Baker], right knee; I10 Essential (primary) hypertension; F31.9 Bipolar disorder, unspecified; N17.9 Acute kidney failure, unspecified; F12.10 Cannabis abuse, uncomplicated; Z91.018 Allergy to other foods; Z79.1 Long term (current) use of non-steroidal anti-inflammatories (NSAID); Z79.899 Other long term (current) drug therapy; Y92.9 Unspecified place or not applicable; Y93.9 Activity, unspecified; Y99.9 Unspecified external cause status

== ENCOUNTER → 2024-02-18 | Outpatient (CLI) | payer OTHER ==
[~2024-02-18] MED LIST changes: +IBUP-1022 PO
[2024-02-18 13:47] LABS: HEMATOCRIT 39.6 % (42.0-52.0); HEMOGLOBIN 12.9 g/dl (13.5-17.5); MEAN CORPUSCULAR HEMOGLOBIN 28.2 pg (27.0-33.0); MEAN CORPUSCULAR HGB CONC 32.6 g/dl (32.0-36.5); MEAN CORPUSCULAR VOLUME 86.7 fl (80.0-96.0); PLATELET COUNT, AUTOMATED 283 10^3/uL (150-450); RED BLOOD COUNT 4.57 10^6/uL (4.30-6.10); WHITE BLOOD COUNT 7.6 10^3/uL (4.0-10.0)
[2024-02-18 14:14] LABS: HEMOGLOBIN A1c 5.2 % (4.0-6.0)
[2024-02-18 14:19] LABS: ALBUMIN 3.6 G/DL (3.2-5.2); ALKALINE PHOSPHATASE 59 U/L (40-129); ALT/SGPT 60 U/L (7.0-40); AST/SGOT 38 U/L (<34); BILIRUBIN,DIRECT 0.1 MG/DL (<0.4); BILIRUBIN,TOTAL 0.4 MG/DL (0.3-1.2); BLOOD UREA NITROGEN 19 MG/DL (9-23); CALCIUM LEVEL 9.4 MG/DL (8.5-10.1); CARBON DIOXIDE LEVEL 32 MMOL/L (20-31); CHLORIDE LEVEL 107 MMOL/L (98-107); CHOLESTEROL LEVEL 146 MG/DL (<200); CHOLESTEROL RISK RATIO 2.36 (<5); CREATININE FOR GFR 1.23 MG/DL (0.70-1.30); GLOMERULAR FILTRATION RATE > 60.0 (>60); GLUCOSE, FASTING 80 MG/DL (60-100); HDL CHOLESTEROL 61.8 MG/DL (>40); LDL CHOLESTEROL 64.2 MG/DL (<100); NON-HDL-C 84.2 MG/DL; PHOSPHORUS LEVEL 3.3 MG/DL (2.5-4.9); POTASSIUM SERUM 3.3 MMOL/L (3.5-5.1); SODIUM LEVEL 143 MMOL/L (136-145); TRIGLYCERIDES LEVEL 100 MG/DL (<150)
== END ==
LOC: M PLALAB 11:49
PROVIDERS: ATTEND Student in an Organized Health Care Education/Training Program
DX: Z00.00 Encounter for general adult medical examination without abnormal findings (principal)

== ENCOUNTER → 2024-03-23 | Outpatient (CLI) | payer OTHER, SELFPAY | LOC: M PLAIMG 16:05 | PROVIDERS: ATTEND Student in an Organized Health Care Education/Training Program | DX: M25.572 Pain in left ankle and joints of left foot (principal); M79.89 Other specified soft tissue disorders ==

== ENCOUNTER 2024-04-23 11:40 | Emergency (ER) | payer OTHER ==
[~2024-04-23] VITALS: Ht 177.8 cm; Wt 112.0 kg
[2024-04-23 13:18] LABS: HEMATOCRIT 38.5 % (42.0-52.0); MEAN CORPUSCULAR HEMOGLOBIN 28.7 pg (27.0-33.0); MEAN CORPUSCULAR HGB CONC 33.8 g/dl (32.0-36.5); PLATELET COUNT, AUTOMATED 286 10^3/uL (150-450); RED BLOOD COUNT 4.53 10^6/uL (4.30-6.10); WHITE BLOOD COUNT 13.8 10^3/uL (4.0-10.0)
[2024-04-23 13:23] LABS: PARTIAL THROMBOPLASTIN TIME 28.9 SECONDS (24.8-34.2); PROTHROMBIN TIME 13.5 SECONDS (12.5-14.5)
[2024-04-23 13:30] LABS: URIC ACID 8.8 MG/DL (3.7-9.2)
[2024-04-23 13:31] LABS: ERYTHROCYTE SEDIMENTATION RATE 71 mm/hr (0-15)
[2024-04-23 13:33] LABS: ALBUMIN 3.6 G/DL (3.2-5.2); BILIRUBIN,DIRECT 0.1 MG/DL (<0.4); BILIRUBIN,TOTAL 0.4 MG/DL (0.3-1.2); C REACTIVE PROTEIN QUANTITATIV 3.35 MG/DL (<1.0); CALCIUM LEVEL 9.1 MG/DL (8.5-10.1); CREATININE FOR GFR 1.51 MG/DL (0.70-1.30); GLOMERULAR FILTRATION RATE 55.9 (>60); POTASSIUM SERUM 3.1 MMOL/L (3.5-5.1); TOTAL PROTEIN 7.4 G/DL (5.7-8.2)
[2024-04-23 13:40] LABS: PROCALCITONIN 0.06 ng/ml
[2024-04-23 14:00] LABS: BASOPHILS 2 % (0-1); EOSINOPHILS 3 % (0-3); LYMPHOCYTES 14 % (16-44); MONOCYTES 4 % (0-5); NEUTROPHILS 77 % (28-66)
[2024-04-23 14:01] LABS: PLATELET ESTIMATE NORMAL (NORMAL)
[2024-04-23] MEDS ORDERED: PRED20TA PO (15:58)
[2024-04-23] MEDS: predniSONE 20 MG TAB PO ONE (16:17)
[2024-04-23] MEDS: COLCHICINE 0.6 MG TABLET PO ONE (16:17)
[2024-04-23] MEDS ORDERED: COLC0.6T47 PO (16:50)
[2024-04-23] MEDS ORDERED: AMLO1TAB25 PO (16:50)
[2024-04-23] MEDS ORDERED: HYDR50TA46 PO (16:50)
[2024-04-23 17:16] VITALS: BP 171/95; TEMP 98.5; O2SAT 98
== END 2024-04-23 17:20 | disposition home or self-care (01) ==
LOC: M ED 11:40
DX: M10.9 Gout, unspecified (principal); M71.22 Synovial cyst of popliteal space [Baker], left knee; Z79.899 Other long term (current) drug therapy
CPT/HCPCS: 36415; 80048; 80076; 83605; 84145; 84550; 85025; 85610; 85652; 85730; 86140; 87040; 93971; 99284; J7512

== ENCOUNTER 2024-06-02 08:35 | Emergency (ER) | payer OTHER ==
[~2024-06-02] VITALS: Ht 177.8 cm; Wt 115.0 kg
[~2024-06-02 08:35] MED LIST changes: +COLC0.6T47 PO; +PRED20TA PO
[2024-06-02 11:33] VITALS: TEMP 98.1; O2SAT 100
[2024-06-02 11:34] VITALS: BP 164/110
[2024-06-02] MEDS ORDERED: COLCHICINE 0.6 MG TABLET PO ONE (12:10)
[2024-06-02] MEDS ORDERED: PRED10TA2 PO (12:14)
[2024-06-02] MEDS: ACETAMINOPHEN 500 MG TAB PO ONE (12:32)
[2024-06-02] MEDS: COLCHICINE 0.6 MG TABLET PO ONE (12:32)
== END 2024-06-02 12:35 | disposition home or self-care (01) ==
LOC: M ED 08:35
DX: M10.062 Idiopathic gout, left knee (principal); M25.562 Pain in left knee; I10 Essential (primary) hypertension; G47.30 Sleep apnea, unspecified; F31.9 Bipolar disorder, unspecified; Z79.1 Long term (current) use of non-steroidal anti-inflammatories (NSAID); Z79.899 Other long term (current) drug therapy; Z79.52 Long term (current) use of systemic steroids; Z91.018 Allergy to other foods

== ENCOUNTER 2024-07-22 12:33 | Emergency (ER) | payer OTHER ==
[~2024-07-22] VITALS: Ht 175.3 cm; Wt 110.7 kg
[~2024-07-22 12:33] MED LIST changes: +PRED10TA2 PO
[2024-07-22] MEDS ORDERED: CETI-24 PO (18:20)
[2024-07-22] MEDS ORDERED: OSEL75CA PO (18:20)
[2024-07-22] MEDS ORDERED: BENZ200C70 PO (18:20)
[2024-07-22 18:28] VITALS: BP 151/98; TEMP 100; O2SAT 97
== END 2024-07-22 18:29 | disposition home or self-care (01) ==
LOC: M ED 12:33
DX: J10.1 Influenza due to other identified influenza virus with other respiratory manifestations (principal); I10 Essential (primary) hypertension; G47.30 Sleep apnea, unspecified; F31.9 Bipolar disorder, unspecified; Z79.899 Other long term (current) drug therapy; Z79.1 Long term (current) use of non-steroidal anti-inflammatories (NSAID); Z91.018 Allergy to other foods

== ENCOUNTER 2025-03-06 15:09 | Observation (INO) | payer OTHER ==
[~2025-03-06] VITALS: Ht 175.3 cm; Wt 102.0 kg
[~2025-03-06 15:09] MED LIST changes: +AMLO-751 PO; -AMLO10TA PO; +BENZ200C70 PO; +CETI-24 PO; -COLC0.6T47 PO; +COLC0.6T53 PO; +HYDR50TA70 PO; -IBUP-1022 PO; +IBUP600T42 PO; +INDO50CA91 PO; +LISI40TA10 PO; -LISI40TA4 PO; +OSEL75CA PO
[2025-03-06] MEDS: **hydrALAZINE** 50 MG TAB PO SCH (15:59)
[2025-03-06] MEDS: amLODIPine 10 MG TAB PO ONE (15:59)
[2025-03-06] MEDS: ACETAMINOPHEN 500 MG TAB PO ONE (16:37)
[2025-03-06] MEDS ORDERED: ISOVUE-370 76% 100 ML VIAL As Ordered ONE (16:41)
[2025-03-06 16:57] LABS: BASO # 0.0 10^3/uL (0.0-0.2); BASO % 0.5 % (0.0-1.0); EOS # 0.6 10^3/uL (0.0-0.5); EOS % 7.9 % (0.0-3.0); LYMPH # 1.7 10^3/uL (1.5-5.0); LYMPH % 22.1 % (24.0-44.0); MONO # 0.8 10^3/uL (0.0-0.8); MONO % 10.3 % (2.0-8.0); NEUTROPHILS # 4.4 10^3/uL (1.5-8.5); NEUTROPHILS % 58.8 % (36.0-66.0); PLATELET COUNT, AUTOMATED 243 10^3/uL (150-450)
[2025-03-06 19:24] LABS: CALCIUM LEVEL 8.5 MG/DL (8.5-10.1); CARBON DIOXIDE LEVEL 30.0 MMOL/L (20-31); CHLORIDE LEVEL 102.0 MMOL/L (98-107); CREATININE FOR GFR 1.69 MG/DL (0.70-1.30); GLOMERULAR FILTRATION RATE 53.0 (>60); POTASSIUM SERUM 3.7 MMOL/L (3.5-5.1); SODIUM LEVEL 141.0 MMOL/L (136-145)
[2025-03-06] MEDS: NS (Normal Saline) 0.9% 1,000 ML IV SCH (20:25)
[2025-03-06 22:28] VITALS: BP 173/98; TEMP 97.6; O2SAT 99
[2025-03-07] MEDS ORDERED: ADVI1CAP2 PO (00:35)
[2025-03-07] MEDS ORDERED: HOME MED LIST COMPLETE! XX SCH (00:40)
[2025-03-07 01:30] VITALS: BP 135/77
[2025-03-07 04:20] VITALS: BP 161/97; TEMP 98.3; O2SAT 97
[2025-03-07 06:18] LABS: BASO # 0.0 10^3/uL (0.0-0.2); BASO % 0.6 % (0.0-1.0); EOS # 0.7 10^3/uL (0.0-0.5); EOS % 9.9 % (0.0-3.0); LYMPH # 2.1 10^3/uL (1.5-5.0); LYMPH % 29.4 % (24.0-44.0); MONO # 0.6 10^3/uL (0.0-0.8); MONO % 8.2 % (2.0-8.0); NEUTROPHILS # 3.7 10^3/uL (1.5-8.5); NEUTROPHILS % 51.6 % (36.0-66.0); PLATELET COUNT, AUTOMATED 250 10^3/uL (150-450)
[2025-03-07 06:53] LABS: CALCIUM LEVEL 8.4 MG/DL (8.5-10.1); CARBON DIOXIDE LEVEL 29.0 MMOL/L (20-31); CHLORIDE LEVEL 103.0 MMOL/L (98-107); CREATININE FOR GFR 1.56 MG/DL (0.70-1.30); GLOMERULAR FILTRATION RATE 58.3 (>60); POTASSIUM SERUM 3.0 MMOL/L (3.5-5.1); SODIUM LEVEL 142.0 MMOL/L (136-145)
[2025-03-07] MEDS ORDERED: ACET1TAB55 PO (09:16)
[2025-03-07] MEDS: POTASSIUM CHLORIDE 10MEQ SR TABLET PO SCH (09:43)
[2025-03-07] MEDS: amLODIPine 10 MG TAB PO SCH (09:44)
[2025-03-07 09:45] VITALS: BP 181/90
[2025-03-07] MEDS: **hydrALAZINE** 50 MG TAB PO SCH (09:45)
[2025-03-07] MEDS: ACETAMINOPHEN 500 MG TAB PO SCH (09:46)
[2025-03-07] MEDS ORDERED: HYDR50TA46 PO (10:59)
[2025-03-07] MEDS ORDERED: AMLO1TAB25 PO (10:59)
[2025-03-07 11:50] VITALS: BP 146/76
== END 2025-03-07 11:58 | disposition home or self-care (01) ==
LOC: M ED 18:56 → M ED INP 18:57 → M MS4PR 22:22
PROVIDERS: ADMIT Internal Medicine Nephrology; ATTEND Internal Medicine Nephrology
DX: I16.0 Hypertensive urgency (principal); M25.521 Pain in right elbow; M25.561 Pain in right knee; I12.9 Hypertensive chronic kidney disease with stage 1 through stage 4 chronic kidney disease, or unspecified chronic kidney disease; N18.30 Chronic kidney disease, stage 3 unspecified; E87.6 Hypokalemia; Z79.899 Other long term (current) drug therapy
CPT/HCPCS: 36415; 70450; 73060; 73080; 73090; 73200; 73552; 74177; 80047; 80048; 85025; 96360; 96361; 99285; Q9967